=== PATIENT | female | born 1975 | race Caucasian/White ===

== ENCOUNTER 2021-10-26 13:40 | Inpatient (IN) | payer SELFPAY ==
--- NOTE | ~2021-10-26 | CT_ITS ---
EXAMINATION: CT ABDOMEN AND PELVIS WITHOUT CONTRAST CLINICAL INFORMATION: Right-sided abdominal pain. COMPARISON: None. TECHNIQUE: Multidetector volumetric imaging was performed from the superior aspect of the liver through the pubic symphysis. Sagittal and coronal reformatted images were obtained on the technologist's workstation. This CT examination was performed using dose optimization techniques as appropriate, variously including the following: *Automated exposure control *Adjustment of mA and/or kV according to patient size (this includes techniques or standardized protocols for targeted exams where dose is matched to indication/reason for exam; i.e. extremities or head) *Use of iterative reconstruction technique DLP: 557 mGy-cm FINDINGS: LUNG BASES: Calcified granuloma in the left lower lobe. No focal consolidation or pleural effusion. LIVER, GALLBLADDER, AND BILIARY TREE: The liver measures 21 cm craniocaudally. There is mild hepatic steatosis. No discrete focal liver lesions are identified, though evaluation is limited in the absence of intravenous contrast. Normal gallbladder. No biliary ductal dilatation. PANCREAS: Very subtle peripancreatic fat stranding is likely related with volume averaging. The main pancreatic duct is nondilated. SPLEEN: The spleen measures 12.7 cm craniocaudally. No discrete lesions. ADRENAL GLANDS: No adrenal masses. 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 There are hyperattenuating renal pyramids with innumerable nonobstructive bilateral renal calculi. No hydronephrosis. Nonspecific ill-defined hypoattenuation in the upper pole of the right kidney. BLADDER: Unremarkable. GASTROINTESTINAL TRACT: Postsurgical changes from what appears to be a prior gastric bypass. The pancreaticobiliary limb is mildly prominent (3:27). The Gabriel-en-Y limb is nondilated. No pericolonic inflammatory changes. The appendix is not definitely visualized, however there are no regional inflammatory changes in the right lower quadrant or cecal base to suspect acute appendicitis. ABDOMINAL WALL: No significant hernia is appreciated. LYMPH NODES: Haziness of the mesentery with nonspecific prominent but subcentimeter mesenteric lymph nodes. VASCULAR: Unremarkable. PELVIC VISCERA: Nonspecific hypodensity in the cervix (7:45). Dominant follicle in the right ovary. OSSEOUS STRUCTURES: No acute or aggressive appearing osseous abnormalities. CT/CT abdomen pelvis wo con IMPRESSION: 1. Postsurgical changes from a prior gastric bypass with unusual circular disposition of the anastomosis in the stomach and mild prominence of the pancreaticobiliary limb. If clinically indicated, further imaging after administration of oral contrast is recommended to evaluate for complications. 2. Indeterminate mesenteric haziness with a few prominent mesenteric lymph nodes. This is of uncertain significance but could be associated with mesenteric adenitis, panniculitis or gastroenteritis in the appropriate clinical context. 3. Hepatomegaly and hepatic steatosis. 4. Nonspecific hypoattenuation in the upper pole the right kidney. Correlation with an elective nonemergent abdominal MR is recommended. 5. Medullary nephrocalcinosis, possibly sponge kidney, and multiple nonobstructive bilateral renal calculi. 6. Incompletely characterized hypodensity in the cervix. Correlation with a nonemergent pelvic ultrasound is recommended.
--- NOTE | ~2021-10-26 | CT_ITS ---
EXAMINATION: CT ABDOMEN AND PELVIS WITHOUT CONTRAST CLINICAL INFORMATION: Abdominal pain. History of gastric bypass. COMPARISON: Earlier same date TECHNIQUE: Multidetector volumetric imaging was performed from the superior aspect of the liver through the pubic symphysis. Sagittal and coronal reformatted images were obtained on the technologist's workstation. This CT examination was performed using dose optimization techniques as appropriate, variously including the following: *Automated exposure control *Adjustment of mA and/or kV according to patient size (this includes techniques or standardized protocols for targeted exams where dose is matched to indication/reason for exam; i.e. extremities or head) *Use of iterative reconstruction technique DLP: 594 mGy-cm FINDINGS: LUNG BASES: The visualized lung bases are unremarkable. LIVER, GALLBLADDER, AND BILIARY TREE: The liver is normal in size, shape, and attenuation. No focal hepatic lesion or biliary ductal dilatation is present. Gallbladder unremarkable. PANCREAS: Unremarkable. SPLEEN: Unremarkable. ADRENAL GLANDS: Unremarkable. KIDNEYS AND URETERS: Again seen is hyperdensity of the medullary pyramids bilaterally compatible with medullary nephrocalcinosis. There are scattered bilateral punctate nonobstructive intrarenal calculi, too numerous to count within both kidneys. No hydronephrosis. There a few hypodensities within the midpole right kidney favored representing simple cysts, although these are technically indeterminate on this unenhanced exam. There is faint haziness of the perinephric fat about the superior pole right kidney, which appears to relate to motion artifact. Ureters are normal in course and caliber. BLADDER: Unremarkable. GASTROINTESTINAL TRACT: Gabriel-en-Y gastric bypass. Small fluid present within the excluded stomach similar to prior. Small amount contrast present within the duodenum. Enteroenteric anastomosis intact. No bowel obstruction or inflammation. ABDOMINAL WALL: No significant hernia is appreciated. LYMPH NODES: Normal. VASCULAR: Unremarkable. PELVIC VISCERA: Hypodensities within the cervix statistically related to nabothian cysts/dilated cervical glands, within normal limits on the basis of unenhanced CT. Physiologic follicle within the right ovary. No adnexal abnormalities. OSSEOUS STRUCTURES: No acute or suspicious osseous abnormalities. CT/CT abdomen pelvis wo con IMPRESSION: * Gabriel-en-Y gastric bypass. Excluded stomach is free of enteric contrast. There is trace oral contrast within the distal transverse duodenum and what portion of the duodenum which may represent retrograde reflux from the enteroenteric anastomosis. No evidence of anastomotic dehiscence. * Bilateral medullary nephrocalcinosis and punctate nonobstructive calculi as described. No ureteral calculi or hydronephrosis. Diagnostic considerations for medullary calcinosis include hyperparathyroidism, distal renal tubular acidosis and medullary sponge kidney. * Nonspecific hypodensity in the upper pole right kidney favored to relate to a benign cyst cyst (as seen on the ultrasound performed earlier same date), * Perinephric stranding versus artifact bowel the superior pole right kidney. Pyelonephritis could be considered. Please correlate with urinalysis.
--- NOTE | ~2021-10-26 | US_ITS ---
EXAMINATION: US ABDOMEN LIMITED CLINICAL INFORMATION: Right upper quadrant abdominal pain for about 3 days. COMPARISON: None. TECHNIQUE: Real-time imaging of the right upper quadrant abdominal viscera. FINDINGS: PANCREAS: The visualized portions of the pancreatic head are within normal limits. However, a large majority of the pancreas is obscured by overlying bowel gas. LIVER: Mild hepatomegaly measuring 18 cm in maximum length with increased parenchymal echogenicity. This limits evaluation of focal abnormalities, however accounting for these limitations, no discrete lesions are identified. There is no intrahepatic biliary ductal dilatation. GALLBLADDER: The gallbladder is contracted limiting its evaluation. No definite shadowing stones are identified. COMMON BILE DUCT: Not visualized due to shadowing from overlying bowel gas. RIGHT KIDNEY: There is a 1.2 cm simple cyst in the upper pole. No hydronephrosis or renal calculi. The kidney measures 12.8 cm in maximum dimension. FREE FLUID: None. US/US abdomen limited IMPRESSION: Limited examination due to patient body habitus and shadowing from overlying bowel gas. Unfortunately, the gallbladder is contracted limiting its assessment. If there is high clinical concerns for acute cholecystitis, correlation with an interval ultrasound or a CT abdomen could be obtained. Increased parenchymal echogenicity of the liver suggesting hepatic steatosis. The pancreas and the common bile duct are not well visualized.
[2021-10-26 13:49] VITALS: BP 130/84; PULSE 79; RESP 18; TEMP 36; O2SAT 100; BMI 29.4
[2021-10-26 14:33] LABS: Basophils Percent Auto 0.3 % (0-2); Eosinophils Absolute Auto 0.1 X10*3/uL (0.0-0.4); Eosinophils Percent Auto 0.9 % (0-4); Hematocrit 29.3 % (37.0-47.0); Hemoglobin 8.7 g/dl (12.0-16.0); Imm Gran Abs Auto 0.05 X10*3/uL (0.00-0.03); Imm Gran Pct Auto 0.8 % (0.0-0.4); Lymphocytes Absolute Auto 1.7 X10*3/uL (1.2-4.9); Lymphocytes Percent Auto 25.5 % (20-40); MANUAL DIFF FLAG NO; Mean Corpuscular HGB Conc 29.7 g/dl (31.0-35.0); Mean Corpuscular Volume 70.8 fL (80.0-98.0); Mean Platelet Volume 10.2 fL (9.4-12.3); Monocytes Absolute Auto 0.8 X10*3/uL (0.1-1.2); Neutrophils Absolute Auto 3.9 x10*3/uL (2.0-8.3); Neutrophils Percent Auto 60.5 % (45-73); Platelet Count 271 X10*3/uL (160-400); Red Blood Count 4.14 X10*6/uL (4.20-5.50); Red Cell Distribution Width 17.7 % (11.0-16.0); White Blood Count 6.5 X10*3/uL (4.8-10.8)
[2021-10-26 14:46] LABS: Anion Gap 10 (12-20); Blood Urea Nitrogen 9 mg/dL (9-16); Calcium 9.6 mg/dL (8.4-10.2); Carbon Dioxide 27 mmol/L (22-29); Chloride 105 mmol/L (96-108); Creatinine Clr Calc Pharmacy 110.2; Estimated Glomerular Filt Rate > 60; Glucose Random 102 mg/dL (60-115); Sodium 138 mmol/L (135-145)
[2021-10-26 15:19] LABS: Appearance Urine CLOUDY; Color Urine YELLOW; Glucose Urine UA NEG (NEG); Leukocyte Esterase Urine 2+ (NEG); Nitrite Urine POS (NEG); PH 6.5 (5.0-8.0); UACC Culture Trigger YES; Urine Blood 3+ (NEG); Urine Ketones NEG (NEG); Urine Protein TRACE MG/DL (NEG-TRACE)
[2021-10-26 15:27] LABS: Bacteria Urine 3+ /LPF; RBC Urine 50-75 /HPF (0); Squamous Epithelial Cell Urine TRACE /LPF; WBC Urine 30-49 /HPF (0-4)
[2021-10-26 15:58] VITALS: BP 126/84; PULSE 74; RESP 16; TEMP 36.4; O2SAT 100
--- NOTE | 2021-10-26 16:28 | ED_ITS ---
HPI - Abdominal Pain General Chief Complaint: Abdominal Pain Stated Complaint: R side abd pain Time Seen by Provider: 10/26/21 15:53 Source: patient and family Mode of arrival: ambulatory Limitations: language barrier (Ghanaian and Kyrgyz speaking) History of Present Illness HPI narrative: 46-year-old female who speaks Ghanaian and Kyrgyz presenting to the ED with significant other at bedside who reports she has a past medical history of anemia despite taking her 325 mg of ferrous sulfate, gallstones and kidney stones presenting to the ED with complaints of 3 days of right upper quadrant abdominal pain with associated nausea/acid reflux. She reports associated dysuria with urinary urgency/frequency. Denies any fevers, chills, dizziness, headache, neck pain/stiffness, trouble swallowing or breathing, chest pain or shortness of breath, dyspnea on exertion, orthopnea, palpitations, paresthesias, vomiting, radiation of the abdominal pain, back pain, hematuria, abnormal vaginal discharge, black or bloody stools, recent travel or sick contacts or any other symptoms complaints or concerns at this time. MD elicited complaint: abdominal pain Pertinent past history: kidney stones (And gallstones) Onset (ago): day(s) (3) Pain Consistency: constant Location: RUQ Severity: moderate Quality: aching and sharp Radiation: none Migration to: no migration Exacerbating factors: nothing Relieving factors: nothing Associated symptoms: nausea Related Data Date of Last Menstrual Period: 10/26/21 Allergies Allergy/AdvReac Type Severity Reaction Status Date / Time No Known Allergies Allergy Verified 10/26/21 15:54 Review of Systems Review of Systems Constitutional : No Weight loss, No Fever, No Chills, No Night Sweats, No Fatigue, No Malaise ENT/Mouth : No Hearing loss, No Ear Pain, No Nasal Congestion, No Sinus Pain, No Hoarseness, No sore throat, No Rhinorrhea, No Swallowing Difficulty Eyes: No Eye Pain, No Swelling, No Redness, No Foreign Body, No Discharge, No Vision Changes Cardiovascular : No Chest Pain, No SOB, No Dyspnea on Exertion, No Orthopnea, No Edema, No Palpitations Respiratory : No Cough, No Sputum, No Wheezing, No Smoke Exposure, No Dyspnea Gastrointestinal : + Nausea/RUQ ABD PAIN, No Vomiting, No Diarrhea, No Constipation, No Hematochezia, No Melena Genitourinary : no irregular bleeding, No Dysuria, No Urinary Frequency, No Hematuria, No Urinary Incontinence, No Urgency, No Flank Pain, No Urinary Flow Changes, No Hesitancy Musculoskeletal : No joint pain, No Myalgias, No Joint Swelling Skin : No Skin Lesions, No rash Neuro : No Weakness, No Numbness, No Paresthesias, No Loss of Consciousness, No Dizziness, No Headache Psych : No Anxiety/Panic, No Depression, No SI/HI/AH/VH, No Social Issues, Heme/Lymph: No Bruising, No Bleeding,No Lymphadenopathy Endocrine : No Polyuria, No Polydipsia, No Temperature Intolerance Yes all other systems are reviewed and are negative [facility] Past Medical History Attestation statement: The following information was validated with the patient. Medical History Hypothyroid Date of Last Menstrual Period: 10/26/21 Social History Social History Advance Directives: No Advance Directives Information Provided: No Physical Exam ED Vital Signs: Vital Signs - 24 hr 10/26/21 13:49 10/26/21 15:58 Temperature 96.8 F 97.5 F Pulse Rate 79 74 Respiratory Rate 18 16 Blood Pressure 130/84 126/84 Pulse Oximetry 100 100 BMI result Body Mass Index 29.4 Vital signs have been reviewed and all within normal limits Appearance: Alert. Oriented X3. No acute distress. Head: Normal external exam. Normocephalic. Eyes: PERRLA. EOMI. Conjunctiva and sclera normal. Eyelids normal. ENT: Pharynx normal. Uvula midline. Moist mucous membranes. No trismus noted. No drooling noted. No muffled voice noted. Neck: Normal inspection. Neck supple. FROM. No adenopathy. No meningeal signs. CVS: Normal heart rate and rhythm. Heart sound normal. No murmurs noted. Pulses normal throughout. Respiratory: No respiratory distress. Painless inspiration. Breath sounds normal. No wheezes/rales/rhonchi noted. Chest nontender. No accessory muscle usage noted or decreased air movement noted. Abdomen: Soft and moderate tenderness palpation to the right upper quadrant/epigastric area with guarding with a positive Durán sign. Nondi stended. No rigidity. Bowel sounds normal in all 4 quadrants. No distention noted. No organomegaly noted. No visible injury noted. No rebound tenderness. Negative Rovsing sign. Negative obturator's sign. Negative psoas sign. Back: No CVA tenderness. Full range of motion noted. Skin: Skin warm and dry. Normal skin color. Normal skin turgor. No rashes/lesions/lacerations noted. Extremities: Extremities exhibit normal range of motion. Extremities nontender. Neuro: Oriented X 3. No motor deficit. No sensory deficit. Reflexes normal. Normal steady gait. CN's II-XII intact bilaterally? Vascular: +2 radial pulses bilaterally. No cyanosis noted to upper extremities. Normal capillary refill noted Course Course Course Narrative: 16:20pm - 46-year-old female who speaks Ghanaian and Kyrgyz presenting to the ED with significant other at bedside who reports she has a past medical history of anemia despite taking her 325 mg of ferrous sulfate, gallstones and kidney stones presenting to the ED with complaints of 3 days of right upper quadrant abdominal pain with associated nausea/acid reflux. She reports associated dysuria with urinary urgency/frequency. Labs were obtained while the patient was in the waiting room and I reviewed labs at this time which revealed an H&H of 8.7/29.3 there is no comparison at this time this may be the patient's baseline due to patient reports anemia she denies any shortness of breath/dizziness or chest pain or any other related complaints. She reports she is also on her menstrual period. Anion gap 10. Otherwise all other labs are within normal limits. UA revealed positive nitrates with leukocytes and red blood cells. Therefore at this time will provide 60 mg of IM Toradol add LFTs/magnesium/lipase/ test Karen ultrasound complete and re-evaluate. Reevaluation(s) Reevaluation #1: - abdominal ultrasound was limited due to body habitus and shadowing from overlying bowel gas and the gallbladder was contracted therefore it was a limited assessment. Therefore CT scan abdomen pelvis without IV contrast was obtained revealed Postsurgical changes from a prior gastric bypass with unusual circular disposition of the anastomosis in the stomach and mild prominence of the pancreaticobiliary limb. If clinically indicated, further imaging after administration of oral contrast is recommended to evaluate for complications. - Therefore I discussed this with the patient as she did not tell me that she had a gastric bypass after I asked her if she had any abdominal surgeries and she reported that she forgot to mention that she had a gastric bypass due to it was over 10 years ago it has never given her any problems it was done in [place]. - CT scan abdomen pelvis without IV contrast also revealed other processes such as hepatomegaly and hepatic steatosis. Possible mesenteric adenitis versus valladares colitis or gastroenteritis. Along with possible sponge kidney and nonobstructive bilateral renal calculi. Otherwise no other acute processes. - I spoke to the general surgeon Dr. Raymond and she recommended obtaining a CT scan abdomen pelvis with p.o. contrast therefore ordered at this time. - Will give patient 4 mg of morphine and 4 mg of Zofran for her pain and re- evaluate. Patient understands agrees with this plan. Time: 18:53 Reevaluation #2: - repeat CT scan with p.o. contrast revealed that the gastric bypass was normal no leakage and no blockage. 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 Also benign cysts on the kidneys. And it appears that patient is in pyelonephritis otherwise no other acute processes. - therefore at this time will admit for pyelonephritis and started on IV antibiotics. Dr. Sy to admit at this time. Patient understands agrees with this plan as she does not want to go home due to she feels like her pain is not controlled. Time: 21:50 MDM - Abdominal Pain Medical Records Attestation: I reviewed the patient's medical records. Lab Data Attestation: I reviewed the patient's lab results. Result diagrams: 10/26/21 14:27 10/26/21 14:27 Labs: Lab Results 10/26/21 10/26/21 10/26/21 Range/Units 14:27 14:27 15:15 WBC 6.5 (4.8-10.8) X10*3/uL RBC 4.14 L (4.20-5.50) X10*6/uL Hgb 8.7 L (12.0-16.0) g/dl Hct 29.3 L (37.0-47.0) % MCV 70.8 L (80.0-98.0) fL MCH 21.0 L (27.0-33.0) pg MCHC 29.7 L (31.0-35.0) g/dl RDW 17.7 H (11.0-16.0) % Plt Count 271 (160-400) X10*3/uL MPV 10.2 (9.4-12.3) fL Immature Gran % (Auto) 0.8 H (0.0-0.4) % Neut % (Auto) 60.5 (45-73) % Lymph % (Auto) 25.5 (20-40) % [place] % (Auto) 12.0 H (2-11) % Eos % (Auto) 0.9 (0-4) % Baso % (Auto) 0.3 (0-2) % Lymph # (Auto) 1.7 (1.2-4.9) X10*3/uL [place] # (Auto) 0.8 (0.1-1.2) X10*3/uL Eos # (Auto) 0.1 (0.0-0.4) X10*3/uL Baso # (Auto) 0.0 (0.0-0.2) X10*3/uL Abs Immat Gran (auto) 0.05 H (0.00-0.03) X10*3/uL Absolute Neuts (auto) 3.9 (2.0-8.3) x10*3/uL Absolute Nucleated RBC 0.000 (0.0-0.012) X10*3/uL Nucleated RBC % (auto) 0.0 (0.0-0.2) /100WBC Sodium 138 (135-145) mmol/L Potassium 4.0 (3.3-5.1) mmol/L Chloride 105 (96-108) mmol/L Carbon Dioxide 27 (22-29) mmol/L Anion Gap 10 L (12-20) BUN 9 (9-16) mg/dL Creatinine 0.66 (0.5-1.4) mg/dL Estim Creat Clear Calc 110.2 Estimated GFR > 60 Random Glucose 102 (60-115) mg/dL Calcium 9.6 (8.4-10.2) mg/dL Magnesium 2.0 (1.6-2.6) mg/dL Total Bilirubin 0.4 (0.0-1.0) mg/dL Direct Bilirubin 0.2 (0.0-0.5) mg/dL AST 16 (5-31) U/L ALT 25 (0-31) U/L Alkaline Phosphatase 65 (39-117) U/L Total Protein 7.2 (6.5-8.0) g/dL Albumin 3.9 (3.5-5.0) g/dL Lipase 23 (8-78) U/L Beta HCG, Quant < 2 mIU/mL Urine Color YELLOW Urine Appearance CLOUDY Urine pH 6.5 (5.0-8.0) Ur Specific [place] 1.020 (1.005-1.025) Urine Protein TRACE (NEG-TRACE) MG/DL Urine Glucose (UA) NEG (NEG) MG/DL Urine Ketones NEG (NEG) MG/DL Urine Blood 3+ H (NEG) Urine Nitrite POS H (NEG) Ur Leukocyte Esterase 2+ H (NEG) Urine RBC 50-75 H (0) /HPF Urine WBC 30-49 H (0-4) /HPF Ur Squamous Epith Cells TRACE /LPF Urine Bacteria 3+ /LPF Urine Test 10/26/21 Range/Units 15:15 WBC (4.8-10.8) X10*3/uL RBC (4.20-5.50) X10*6/uL Hgb (12.0-16.0) g/dl Hct (37.0-47.0) % MCV (80.0-98.0) fL MCH (27.0-33.0) pg MCHC (31.0-35.0) g/dl RDW (11.0-16.0) % Plt Count (160-400) X10*3/uL MPV (9.4-12.3) fL Immature Gran % (Auto) (0.0-0.4) % Neut % (Auto) (45-73) % Lymph % (Auto) (20-40) % [place] % (Auto) (2-11) % Eos % (Auto) (0-4) % Baso % (Auto) (0-2) % Lymph # (Auto) (1.2-4.9) X10*3/uL [place] # (Auto) (0.1-1.2) X10*3/uL Eos # (Auto) (0.0-0.4) X10*3/uL Baso # (Auto) (0.0-0.2) X10*3/uL Abs Immat Gran (auto) (0.00-0.03) X10*3/uL Absolute Neuts (auto) (2.0-8.3) x10*3/uL Absolute Nucleated RBC (0.0-0.012) X10*3/uL Nucleated RBC % (auto) (0.0-0.2) /100WBC Sodium (135-145) mmol/L Potassium (3.3-5.1) mmol/L Chloride (96-108) mmol/L Carbon Dioxide (22-29) mmol/L Anion Gap (12-20) BUN (9-16) mg/dL Creatinine (0.5-1.4) mg/dL Estim Creat Clear Calc Estimated GFR Random Glucose (60-115) mg/dL Calcium (8.4-10.2) mg/dL Magnesium (1.6-2.6) mg/dL Total Bilirubin (0.0-1.0) mg/dL Direct Bilirubin (0.0-0.5) mg/dL AST (5-31) U/L ALT (0-31) U/L Alkaline Phosphatase (39-117) U/L Total Protein (6.5-8.0) g/dL Albumin (3.5-5.0) g/dL Lipase (8-78) U/L Beta HCG, Quant mIU/mL Urine Color Urine Appearance Urine pH (5.0-8.0) Ur Specific [place] (1.005-1.025) Urine Protein (NEG-TRACE) MG/DL Urine Glucose (UA) (NEG) MG/DL Urine Ketones (NEG) MG/DL Urine Blood (NEG) Urine Nitrite (NEG) Ur Leukocyte Esterase (NEG) Urine RBC (0) /HPF Urine WBC (0-4) /HPF Ur Squamous Epith Cells /LPF Urine Bacteria /LPF Urine Test Cancelled Imaging Data Abdominal ultrasound: Attestation: I personally reviewed and interpreted this imaging study as follows: Radiologist's impression: FINDINGS: PANCREAS: The visualized portions of the pancreatic head are within normal limits. However, a large majority of the pancreas is obscured by overlying bowel gas. LIVER: Mild hepatomegaly measuring 18 cm in maximum length with increased parenchymal echogenicity. This limits evaluation of focal abnormalities, however accounting for these limitations, no discrete lesions are identified. There is no intrahepatic biliary ductal dilatation. GALLBLADDER: The gallbladder is contracted limiting its evaluation. No definite shadowing stones are identified. COMMON BILE DUCT: Not visualized due to shadowing from overlying bowel gas. RIGHT KIDNEY: There is a 1.2 cm simple cyst in the upper pole. No hydronephrosis or renal calculi. The kidney measures 12.8 cm in maximum dimension. FREE FLUID: None. US/US abdomen limited IMPRESSION: Limited examination due to patient body habitus and shadowing from overlying bowel gas. ? Unfortunately, the gallbladder is contracted limiting its assessment. If there is high clinical concerns for acute cholecystitis, correlation with an interval ultrasound or a CT abdomen could be obtained. ? Increased parenchymal echogenicity of the liver suggesting hepatic steatosis. ? The pancreas and the common bile duct are not well visualized. CT scan abdomen pelvis without IV/PO contrast: Attestation: I personally reviewed and interpreted this imaging study as follows: Radiologist's impression: FINDINGS: LUNG BASES: Calcified granuloma in the left lower lobe. No focal consolidation or pleural effusion.? LIVER, GALLBLADDER, AND BILIARY TREE: The liver measures 21 cm craniocaudally. There is mild hepatic steatosis. No discrete focal liver lesions are identified, though evaluation is limited in the absence of intravenous contrast. Normal gallbladder. No biliary ductal dilatation. PANCREAS: Very subtle peripancreatic fat stranding is likely related with volume averaging. The main pancreatic duct is nondilated.? SPLEEN: The spleen measures 12.7 cm craniocaudally. No discrete lesions.? ADRENAL GLANDS: No adrenal masses.? 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 There are hyperattenuating renal pyramids with innumerable nonobstructive bilateral renal calculi. No hydronephrosis. Nonspecific ill-defined hypoattenuation in the upper pole of the right kidney.? BLADDER: Unremarkable.? GASTROINTESTINAL TRACT: Postsurgical changes from what appears to be a prior gastric bypass. The pancreaticobiliary limb is mildly prominent (3:27). The Gabriel-en-Y limb is nondilated. No pericolonic inflammatory changes. The appendix is not definitely visualized, however there are no regional inflammatory changes in the right lower quadrant or cecal base to suspect acute appendicitis.? ABDOMINAL WALL: No significant hernia is appreciated.? LYMPH NODES: Haziness of the mesentery with nonspecific prominent but subcentimeter mesenteric lymph nodes. VASCULAR: Unremarkable. PELVIC VISCERA: Nonspecific hypodensity in the cervix (7:45). Dominant follicle in the right ovary.? OSSEOUS STRUCTURES: No acute or aggressive appearing osseous abnormalities.? CT/CT abdomen pelvis wo con IMPRESSION: 1.? Postsurgical changes from a prior gastric bypass with unusual circular disposition of the anastomosis in the stomach and mild prominence of the pancreaticobiliary limb. If clinically indicated, further imaging after administration of oral contrast is recommended to evaluate for complications. ? 2.? Indeterminate mesenteric haziness with a few prominent mesenteric lymph nodes. This is of uncertain significance but could be associated with mesenteric adenitis, panniculitis or gastroenteritis in the appropriate clinical context. ? 3.? Hepatomegaly and hepatic steatosis. ? 4.? Nonspecific hypoattenuation in the upper pole the right kidney. Correlation with an elective nonemergent abdominal MR is recommended. ? 5.? Medullary nephrocalcinosis, possibly sponge kidney, and multiple nonobstructive bilateral renal calculi. ? 6.? Incompletely characterized hypodensity in the cervix. Correlation with a nonemergent pelvic ultrasound is recommended. CT scan abdomen pelvis with p.o. contrast: Attestation: I personally reviewed and interpreted this imaging study as follows: Radiologist's impression: FINDINGS: LUNG BASES: The visualized lung bases are unremarkable.? LIVER, GALLBLADDER, AND BILIARY TREE: The liver is normal in size, shape, and attenuation. No focal hepatic lesion or biliary ductal dilatation is present. Gallbladder unremarkable.? PANCREAS: Unremarkable.? SPLEEN: Unremarkable.? ADRENAL GLANDS: Unremarkable.? KIDNEYS AND URETERS: Again seen is hyperdensity of the medullary pyramids bilaterally compatible with medullary nephrocalcinosis. There are scattered bilateral punctate nonobstructive intrarenal calculi, too numerous to count within both kidneys. No hydronephrosis. There a few hypodensities within the midpole right kidney favored representing simple cysts, although these are technically indeterminate on this unenhanced exam. There is faint haziness of the perinephric fat about the superior pole right kidney, which appears to relate to motion artifact. Ureters are normal in course and caliber. BLADDER: Unremarkable.? GASTROINTESTINAL TRACT: Gabriel-en-Y gastric bypass. Small fluid present within the excluded stomach similar to prior. Small amount contrast present within the duodenum. Enteroenteric anastomosis intact. No bowel obstruction or inflammation. ABDOMINAL WALL: No significant hernia is appreciated.? LYMPH NODES: Normal. VASCULAR: Unremarkable. PELVIC VISCERA: Hypodensities within the cervix statistically related to nabothian cysts/dilated cervical glands, within normal limits on the basis of unenhanced CT. Physiologic follicle within the right ovary. No adnexal abnormalities.? OSSEOUS STRUCTURES: No acute or suspicious osseous abnormalities.? CT/CT abdomen pelvis wo con IMPRESSION: *? Gabriel-en-Y gastric bypass. Excluded stomach is free of enteric contrast. There is trace oral contrast within the distal transverse duodenum and what portion of the duodenum which may represent retrograde reflux from the enteroenteric anastomosis. No evidence of anastomotic dehiscence. *? Bilateral medullary nephrocalcinosis and punctate nonobstructive calculi as described. No ureteral calculi or hydronephrosis. Diagnostic considerations for medullary calcinosis include hyperparathyroidism, distal renal tubular acidosis and medullary sponge kidney. *? Nonspecific hypodensity in the upper pole right kidney favored to relate to a benign cyst cyst (as seen on the ultrasound performed earlier same date), *? Perinephric stranding versus artifact bowel the superior pole right kidney. Pyelonephritis could be considered. Please correlate with urinalysis. ? ? Critical Care Time Critical Care Time Critical Care Time: Yes Total Critical Care Time: 60 Attestation: I personally attest to this time spent taking care of the patient Discharge Plan Discharge Clinical Impression: Pyelonephritis, Abdominal pain, RUQ, Nausea, Acute abdominal pain in right flank Patient Disposition: Admitted As Inpatient
[2021-10-26 16:47] LABS: Alanine Aminotransferase 25 U/L (0-31); Albumin Level 3.9 g/dL (3.5-5.0); Alkaline Phosphatase 65 U/L (39-117); Aspartate Amino Transferase 16 U/L (5-31); Bilirubin Direct 0.2 mg/dL (0.0-0.5); Bilirubin Total 0.4 mg/dL (0.0-1.0); Lipase 23 U/L (8-78); Total Protein 7.2 g/dL (6.5-8.0)
[2021-10-26] MEDS: Ketorolac Tromethamine 60 MG/2 ML VIAL IM (17:13)
[2021-10-26 17:17] LABS: HCG Quantitative < 2 mIU/mL
[2021-10-26] MEDS: Morphine Sulfate 4 MG/ML CARTRIDGE IVPUSH (19:22)
[2021-10-26] MEDS: ondansetron HCL 4 MG/2 ML VIAL IVPUSH (19:22)
--- NOTE | 2021-10-26 19:41 | PC.NURSE ---
Took report from Michelle to assume care of PT.
[2021-10-26] MEDS: Diatrizoate Meglumine, Sodium 30 ML SOLUTION PO (20:52)
[2021-10-26] MEDS: 0.9 % Sodium Chloride 1,000 ML 999 ML IVCONT (22:17)
[2021-10-26] MEDS: levoFLOXacin/D5W 750 MG/150 ML PIGGYBACK 100 MG IV (22:19)
[2021-10-26 22:55] LABS: Lactic Acid 0.8 mmol/L (0.5-2.0)
[2021-10-26 23:04] VITALS: BP 103/70; PULSE 67; RESP 16; O2SAT 97
[2021-10-26 23:09] LABS: COVID-19 Test Negative (Negative)
--- NOTE | 2021-10-26 23:57 | PM.IMHP ---
History of Present Illness Date of Service: 10/26/21 Chief Complaint: RUQ pain This is a 46-year-old female with past medical history of hypothyroidism and Gabriel-en-Y gastric bypass presents to the hospital with complaints of right upper and lower quadrant abdominal pain. Patient reports that her symptoms started about 4 days ago, 04/14, radiating across the abdomen, with some urinary frequency, no urgency or dysuria. She has some nausea with no vomiting, patient otherwise denies any diarrhea or constipation, no chest pain, no shortness of breath, no cough, no headache or change in vision, no lower extremity edema. On arrival to the ED patient hemodynamically stable with no significant abnormal vitals Labs are significant for WBC count of 4.9, hemoglobin of 8.7, hematocrit 29.3, MCV of 70.8, urine positive for nitrites, leukocyte Estrace, WBC Initial Abdominal pelvic CT without contrast showed postsurgical changes from a prior gastric bypass with unusual circular disposition of the anastomosis in the stomach and mild prominence of the pancreatobiliary limb. A repeat abdominal CT with contrast was done which showed evidence of pyelonephritis and revealed normal gastric bypass no leakage and no blockage. Pre also shows medullary sponge kidney. She will be admitted for further management Review of Systems Review of Systems: Yes all other systems are reviewed and are negative [facility] Medical History (Updated 10/27/21 @ 07:35 by Yanci Sy MD) Hypothyroid Family History (Updated 10/27/21 @ 07:33 by Yanci Sy MD) Other No family history of coronary artery disease Surgical History (Updated 10/27/21 @ 07:33 by Yanci Sy MD) History of Gabriel-en-Y gastric bypass Social History (Updated 10/27/21 @ 07:34 by Yanci Sy MD) Alcohol intake: never Patient Tobacco Use Status: Never used Tobacco Use of substances other than those prescribed or required for medical reasons: No Advance Directives: No Advance Directives Information Provided: No Meds Allergies Allergy/AdvReac Type Severity Reaction Status Date / Time No Known Allergies Allergy Verified 10/26/21 15:54 Active Medications: Current Medications Pharmacy Consult (Consult Rx Perform Med Rec) 1 each MISCELLANE ONCE PRN PRN Reason: Consult order Physical Exam Vital Signs and Narrative: Vital Signs: Last Vital Signs Temp 97.5 F 10/26/21 15:58 Pulse 67 10/26/21 23:04 Resp 16 10/26/21 23:04 BP 103/70 10/26/21 23:04 Pulse Ox 97 10/26/21 23:04 BMI result Body Mass Index 29.4 Const: General: cooperative and no acute distress Orientation/consciousness: patient oriented x3 Eyes: General: appearance normal, both eyes and all related structures Pupils: Equal, round and reactive pupils present Resp: Effort & Inspection: normal respiratory effort Auscultation: clear to auscultation bilaterally Cardio: Rate: regular rate Rhythm: regular rhythm GI: Other: Right upper quadrant abdominal tenderness, no rebound or guarding Palpation (GI): Soft to palpation Auscultation: normal bowel sounds : Other: CVA tenderness present on the right Skin: General skin exam: no rashes or lesions noted Neuro: General: patient oriented x3 Cranial nerves: Yes Equal, round and reactive pupils present Cognition (Neuro): normal cognition Extrem: General: Yes normal to inspection and Yes no pedal edema Results Labs CBC and Chem 7: 10/27/21 05:46 10/27/21 05:46 Labs: Laboratory Results - last 24 hr 10/26/21 10/26/21 10/26/21 14:27 14:27 15:15 MCV 70.8 L MCH 21.0 L MCHC 29.7 L RDW 17.7 H Plt Count 271 MPV 10.2 Immature Gran % (Auto) 0.8 H Neut % (Auto) 60.5 Lymph % (Auto) 25.5 [place] % (Auto) 12.0 H Eos % (Auto) 0.9 Baso % (Auto) 0.3 Lymph # (Auto) 1.7 [place] # (Auto) 0.8 Eos # (Auto) 0.1 Baso # (Auto) 0.0 Abs Immat Gran (auto) 0.05 H Absolute Neuts (auto) 3.9 Absolute Nucleated RBC 0.000 Nucleated RBC % (auto) 0.0 Anion Gap 10 L Estim Creat Clear Calc 110.2 Estimated GFR > 60 Random Glucose 102 Lactic Acid Calcium 9.6 Magnesium 2.0 Total Bilirubin 0.4 Direct Bilirubin 0.2 AST 16 ALT 25 Alkaline Phosphatase 65 Total Protein 7.2 Albumin 3.9 Lipase 23 Beta HCG, Quant < 2 Urine Color YELLOW Urine Appearance CLOUDY Urine pH 6.5 Ur Specific [place] 1.020 Urine Protein TRACE Urine Glucose (UA) NEG Urine Ketones NEG Urine Blood 3+ H Urine Nitrite POS H Ur Leukocyte Esterase 2+ H Urine RBC 50-75 H Urine WBC 30-49 H Ur Squamous Epith Cells TRACE Urine Bacteria 3+ Urine Test COVID-19 (JADA) COVID-19 Clin Com 10/26/21 10/26/21 10/26/21 15:15 22:34 22:35 MCV MCH MCHC RDW Plt Count MPV Immature Gran % (Auto) Neut % (Auto) Lymph % (Auto) [place] % (Auto) Eos % (Auto) Baso % (Auto) Lymph # (Auto) [place] # (Auto) Eos # (Auto) Baso # (Auto) Abs Immat Gran (auto) Absolute Neuts (auto) Absolute Nucleated RBC Nucleated RBC % (auto) Anion Gap Estim Creat Clear Calc Estimated GFR Random Glucose Lactic Acid 0.8 Calcium Magnesium Total Bilirubin Direct Bilirubin AST ALT Alkaline Phosphatase Total Protein Albumin Lipase Beta HCG, Quant Urine Color Urine Appearance Urine pH Ur Specific [place] Urine Protein Urine Glucose (UA) Urine Ketones Urine Blood Urine Nitrite Ur Leukocyte Esterase Urine RBC Urine WBC Ur Squamous Epith Cells Urine Bacteria Urine Test Cancelled COVID-19 (JADA) Negative COVID-19 Clin Com See Note Imaging Radiologist's Impressions: Impressions Abdomen Ultrasound 10/26/21 16:48 IMPRESSION: Limited examination due to patient body habitus and shadowing from overlying bowel gas. Unfortunately, the gallbladder is contracted limiting its assessment. If there is high clinical concerns for acute cholecystitis, correlation with an interval ultrasound or a CT abdomen could be obtained. Increased parenchymal echogenicity of the liver suggesting hepatic steatosis. The pancreas and the common bile duct are not well visualized. Abdomen/Pelvis CT 10/26/21 17:37 IMPRESSION: 1. Postsurgical changes from a prior gastric bypass with unusual circular disposition of the anastomosis in the stomach and mild prominence of the pancreaticobiliary limb. If clinically indicated, further imaging after administration of oral contrast is recommended to evaluate for complications. 2. Indeterminate mesenteric haziness with a few prominent mesenteric lymph nodes. This is of uncertain significance but could be associated with mesenteric adenitis, panniculitis or gastroenteritis in the appropriate clinical context. 3. Hepatomegaly and hepatic steatosis. 4. Nonspecific hypoattenuation in the upper pole the right kidney. Correlation with an elective nonemergent abdominal MR is recommended. 5. Medullary nephrocalcinosis, possibly sponge kidney, and multiple nonobstructive bilateral renal calculi. 6. Incompletely characterized hypodensity in the cervix. Correlation with a nonemergent pelvic ultrasound is recommended. Abdomen/Pelvis CT 10/26/21 21:02 IMPRESSION: * Gabriel-en-Y gastric bypass. Excluded stomach is free of enteric contrast. There is trace oral contrast within the distal transverse duodenum and what portion of the duodenum which may represent retrograde reflux from the enteroenteric anastomosis. No evidence of anastomotic dehiscence. * Bilateral medullary nephrocalcinosis and punctate nonobstructive calculi as described. No ureteral calculi or hydronephrosis. Diagnostic considerations for medullary calcinosis include hyperparathyroidism, distal renal tubular acidosis and medullary sponge kidney. * Nonspecific hypodensity in the upper pole right kidney favored to relate to a benign cyst cyst (as seen on the ultrasound performed earlier same date), * Perinephric stranding versus artifact bowel the superior pole right kidney. Pyelonephritis could be considered. Please correlate with urinalysis. Assessment and Plan (1) Abdominal pain, RUQ: Status: Acute (2) Pyelonephritis: Status: Acute (3) UTI (urinary tract infection): Status: Acute (4) Acute on chronic anemia: Status: Acute Plan 46-year-old female with past medical history of Gabriel-en-Y gastric bypass surgery, hypothyroidism presents to the hospital with abdominal pain found to have pyelonephritis # pyelonephritis - has UTI, with evidence of pyelonephritis on abdominal pelvic CT - will treat with IV antibiotics - follow cultures # UTI - has frequency, with positive UA -evidence of pyelonephritis -she with IV antibiotics - follow cultures # acute on chronic anemia - microcytic anemia - will obtain ferritin, B12 and folic acid - no evidence of acute bleed at this time # hypothyroidism - continue levothyroxine DVT prophylaxis: Lovenox Quality Stroke Does the patient have a stroke diagnosis?: No VTE Prior VTE?: No VTE Risk Level:: Medical - moderate - high VTE Device Contraindication: Treatment Not Indicated VTE Drug Contraindication: N/A - Med Ordered
[2021-10-27] MEDS: Morphine Sulfate 4 MG/ML CARTRIDGE IVPUSH ×4 (00:33→20:09)
[2021-10-27] MEDS: Enoxaparin Sodium 40 MG/0.4 ML SYRINGE SUBCUT (00:34)
[2021-10-27] MEDS: cefTRIAXone sodium 1 GM in 0.9 % Sodium Chloride 50 ML IV ×2 (00:34→23:00)
[2021-10-27] MEDS: 0.9 % Sodium Chloride 1,000 ML 100 ML IVCONT ×3 (00:35→17:43)
[2021-10-27 06:01] LABS: MANUAL DIFF FLAG NO
[2021-10-27 06:04] LABS: Basophils Percent Auto 0.2 % (0-2); Eosinophils Absolute Auto 0.1 X10*3/uL (0.0-0.4); Eosinophils Percent Auto 2.5 % (0-4); Hematocrit 25.8 % (37.0-47.0); Hemoglobin 7.5 g/dl (12.0-16.0); Imm Gran Abs Auto 0.03 X10*3/uL (0.00-0.03); Imm Gran Pct Auto 0.6 % (0.0-0.4); Lymphocytes Absolute Auto 1.7 X10*3/uL (1.2-4.9); Lymphocytes Percent Auto 33.8 % (20-40); Mean Corpuscular HGB Conc 29.1 g/dl (31.0-35.0); Mean Corpuscular Hemoglobin 20.8 pg (27.0-33.0); Mean Corpuscular Volume 71.5 fL (80.0-98.0); Mean Platelet Volume 10.1 fL (9.4-12.3); Monocytes Absolute Auto 0.7 X10*3/uL (0.1-1.2); Monocytes Percent Auto 13.5 % (2-11); Neutrophils Absolute Auto 2.4 x10*3/uL (2.0-8.3); Neutrophils Percent Auto 49.4 % (45-73); Platelet Count 223 X10*3/uL (160-400); Red Blood Count 3.61 X10*6/uL (4.20-5.50); Red Cell Distribution Width 17.7 % (11.0-16.0); White Blood Count 4.9 X10*3/uL (4.8-10.8)
[2021-10-27 06:11] VITALS: BP 99/53; PULSE 61; RESP 18; TEMP 36.7; O2SAT 98
[2021-10-27 06:23] LABS: Anion Gap 10 (12-20); Blood Urea Nitrogen 13 mg/dL (9-16); Calcium 8.3 mg/dL (8.4-10.2); Carbon Dioxide 24 mmol/L (22-29); Chloride 108 mmol/L (96-108); Creatinine Clr Calc Pharmacy 125.5; Estimated Glomerular Filt Rate > 60; Glucose Random 95 mg/dL (60-115); Potassium 3.9 mmol/L (3.3-5.1); Sodium 138 mmol/L (135-145)
[2021-10-27] MEDS: ondansetron HCL 4 MG/2 ML VIAL IVPUSH ×2 (06:28→15:56)
[2021-10-27 08:12] VITALS: BP 105/68; PULSE 75; RESP 18; TEMP 36.8; O2SAT 95
[2021-10-27 08:22] LABS: Ferritin 10 ng/mL (10-250)
[2021-10-27 08:23] LABS: Iron 23 mcg/dL (30-160); Percent Iron Saturation 7 % (15-50); Total Iron Binding Capacity 313 mcg/dL (228-428); Unsaturated Iron Binding 290 ug/dL
--- NOTE | 2021-10-27 09:24 | PHA.MEDREC ---
MED REC COMPLETE, NO ISSUES Pharmacy Consult ? Medication Reconciliation Pharmacy has completed the medication reconciliation.
[2021-10-27 09:46] VITALS: BP 96/54; PULSE 75; RESP 19; TEMP 36.6; O2SAT 97
--- NOTE | 2021-10-27 11:35 | MHC.CM.PN ---
CM met with Patient at bedside in ED room 7. Patient lives in a house with her and 2 teenage children and she is functionally independent. Home no services is the goal for dc and CM has initiated and will follow for dc planning. Patient has no PCP and no Insurance (a referral has been made to [facility]). Patient received the [employer] Covid vax X1 only.
--- NOTE | 2021-10-27 13:28 | P.PNIM_ITS ---
Subjective Subjective Date of Service: 10/27/21 <PASCUAL Andino - Last Filed: 10/27/21 14:13> 10/27/21 <Stacy Crow MD - Last Filed: 10/27/21 15:59> Interval History: seen and examined this morning follow up for pyelonephritis reporting right flank pain, chills no nausea or vomiting <PASCUAL Andino - Last Filed: 10/27/21 14:13> Review of Systems Review of Systems: Yes all other systems are reviewed and are negative <PASCUAL Andino - Last Filed: 10/27/21 14:13> Constitutional Constitutional: Reports chills and Denies fever(s) <PASCUAL Adnino - Last Filed: 10/27/21 14:13> Cardiovascular Cardiovascular: Denies chest pain, Denies palpitations and Denies dyspnea <PASCUAL Andino - Last Filed: 10/27/21 14:13> Respiratory Respiratory: Denies cough and Denies dyspnea <PASCUAL Andino - Last Filed: 10/27/21 14:13> Genitourinary Genitourinary: Reports abnormal menses (average 10 days heavy bleeding), Reports menorrhagia and Denies dysuria <PASCUAL Andino - Last Filed: 10/27/21 14:13> urinary frequency <PASCUAL Andino - Last Filed: 10/27/21 14:13> Endocrine Endocrine: Denies palpitations <PASCUAL Andino - Last Filed: 10/27/21 14:13> Physical Exam Vital Signs: Vital Signs: Last Vital Signs Temp 98 F 10/27/21 09:46 Pulse 75 10/27/21 09:46 Resp 19 10/27/21 09:46 BP 96/54 L 10/27/21 09:46 Pulse Ox 97 10/27/21 09:46 BMI result Body Mass Index 29.4 <PASCUAL Andino - Last Filed: 10/27/21 14:13> Const: General: cooperative, comfortable, alert and awake <PASCUAL Andino - Last Filed: 10/27/21 14:13> Nutritional Appearance: average body habitus <YuePASCUAL Moore - Last Filed: 10/27/21 14:13> Orientation/consciousness: patient oriented x3 <PASCUAL Andino - Last Filed: 10/27/21 14:13> Eyes: Pupils: Equal, round and reactive pupils present <PASCUAL Andino - Last Filed: 10/27/21 14:13> EOM: EOMs intact bilaterally <PASCUAL Andino - Last Filed: 10/27/21 14:13> Resp: Effort & Inspection: normal respiratory effort and able to speak in complete sentences <PASCUAL Andino - Last Filed: 10/27/21 14:13> Auscultation: clear to auscultation bilaterally <PASCUAL Andino - Last Filed: 10/27/21 14:13> Cardio: Rate: regular rate <PASCUAL Andino - Last Filed: 10/27/21 14:13> Heart sounds: S1 normal heart sound present and S2 normal heart sound present <PASCUAL Andino - Last Filed: 10/27/21 14:13> GI: Inspection: No distended <PASCUAL Andino - Last Filed: 10/27/21 14:13> Palpation (GI): Soft to palpation and nontender <PASCUAL Andino - Last Filed: 10/27/21 14:13> : General: Yes CVA tenderness on the right <PASCUAL Andino - Last Filed: 10/27/21 14:13> Back/Spine/Pelvis: Back: CVA tenderness <PASCUAL Andino - Last Filed: 10/27/21 14:13> Neuro: General: patient oriented x3 <PASCUAL Andino - Last Filed: 10/27/21 14:13> Cranial nerves: Yes Equal, round and reactive pupils present <PASCUAL Andino - Last Filed: 10/27/21 14:13> Extrem: General: Yes no pedal edema <PASCUAL Andino - Last Filed: 10/27/21 14:13> Objective Data Active Medications Acetaminophen (Acetaminophen 325 Mg Tablet) 650 mg PO Q6H PRN PRN Reason: Pain, Mild (Pain Scale 1-3) Docusate Sodium (Docusate Sodium 100 Mg Capsule) 100 mg PO DAILY PRN PRN Reason: Constipation Enoxaparin Sodium (Enoxaparin Sodium 40 Mg/0.4 Ml Syringe) 40 mg SUBCUT Q24H COUNT INCLUDES THE [facility] Last Admin: 10/27/21 00:34 Dose: 40 mg Documented by: MOHINI Ceftriaxone Sodium 1 gm/ (Sodium Chloride) 50 mls @ 100 mls/hr IV Q24H COUNT INCLUDES THE [facility] Last Infusion: 10/27/21 01:05 Dose: 100 mls/hr Documented by: MOHINI Sodium Chloride (Ns) 1,000 mls @ 125 mls/hr IVCONT .Q8H COUNT INCLUDES THE [facility] Last Admin: 10/27/21 07:22 Dose: 100 mls/hr Documented by: YANG Morphine Sulfate (Morphine Sulfate 4 Mg/Ml Cartridge) 4 mg IVPUSH Q4H PRN; Protocol PRN Reason: Pain, Severe (Pain Scale 7-10) Last Admin: 10/27/21 06:27 Dose: 4 mg Documented by: MOHINI Ondansetron HCl (Ondansetron Hcl 4 Mg/2 Ml Vial) 4 mg IVPUSH Q8H PRN PRN Reason: Nausea and Vomiting Last Admin: 10/27/21 06:28 Dose: 4 mg Documented by: MOHINI Pharmacy Consult (Consult Rx Perform Med Rec) 1 each MISCELLANE ONCE PRN PRN Reason: Consult order Sodium Chloride (0.9 % Sodium Chloride Flush 3 Ml Syringe) 3 ml IVFLUSH QSHIFT COUNT INCLUDES THE [facility] Last Admin: 10/27/21 07:14 Dose: Not Given Documented by: YANG Non-Admin Reason: IV Running <PASCUAL Andino - Last Filed: 10/27/21 14:13> Labs CBC & Chem 7: : 10/27/21 05:46 10/27/21 05:46 <PASCUAL Andino - Last Filed: 10/27/21 14:13> Labs: Laboratory Results - last 24 hr 10/26/21 10/26/21 10/26/21 14:27 14:27 15:15 MCV 70.8 L MCH 21.0 L MCHC 29.7 L RDW 17.7 H Plt Count 271 MPV 10.2 Immature Gran % (Auto) 0.8 H Neut % (Auto) 60.5 Lymph % (Auto) 25.5 [place] % (Auto) 12.0 H Eos % (Auto) 0.9 Baso % (Auto) 0.3 Lymph # (Auto) 1.7 [place] # (Auto) 0.8 Eos # (Auto) 0.1 Baso # (Auto) 0.0 Abs Immat Gran (auto) 0.05 H Absolute Neuts (auto) 3.9 Absolute Nucleated RBC 0.000 Nucleated RBC % (auto) 0.0 Anion Gap 10 L Estim Creat Clear Calc 110.2 Estimated GFR > 60 Random Glucose 102 Lactic Acid Calcium 9.6 Magnesium 2.0 Iron TIBC % Saturation Unsat Iron Binding Ferritin Total Bilirubin 0.4 Direct Bilirubin 0.2 AST 16 ALT 25 Alkaline Phosphatase 65 Total Protein 7.2 Albumin 3.9 Lipase 23 Beta HCG, Quant < 2 Urine Color YELLOW Urine Appearance CLOUDY Urine pH 6.5 Ur Specific [place] 1.020 Urine Protein TRACE Urine Glucose (UA) NEG Urine Ketones NEG Urine Blood 3+ H Urine Nitrite POS H Ur Leukocyte Esterase 2+ H Urine RBC 50-75 H Urine WBC 30-49 H Ur Squamous Epith Cells TRACE Urine Bacteria 3+ Urine Test COVID-19 (JADA) COVID-19 Clin Com 10/26/21 10/26/21 10/26/21 15:15 22:34 22:35 MCV MCH MCHC RDW Plt Count MPV Immature Gran % (Auto) Neut % (Auto) Lymph % (Auto) [place] % (Auto) Eos % (Auto) Baso % (Auto) Lymph # (Auto) [place] # (Auto) Eos # (Auto) Baso # (Auto) Abs Immat Gran (auto) Absolute Neuts (auto) Absolute Nucleated RBC Nucleated RBC % (auto) Anion Gap Estim Creat Clear Calc Estimated GFR Random Glucose Lactic Acid 0.8 Calcium Magnesium Iron TIBC % Saturation Unsat Iron Binding Ferritin Total Bilirubin Direct Bilirubin AST ALT Alkaline Phosphatase Total Protein Albumin Lipase Beta HCG, Quant Urine Color Urine Appearance Urine pH Ur Specific [place] Urine Protein Urine Glucose (UA) Urine Ketones Urine Blood Urine Nitrite Ur Leukocyte Esterase Urine RBC Urine WBC Ur Squamous Epith Cells Urine Bacteria Urine Test Cancelled COVID-19 (JADA) Negative COVID-19 Clin Com See Note 10/27/21 10/27/21 05:46 05:46 MCV 71.5 L MCH 20.8 L MCHC 29.1 L RDW 17.7 H Plt Count 223 MPV 10.1 Immature Gran % (Auto) 0.6 H Neut % (Auto) 49.4 Lymph % (Auto) 33.8 [place] % (Auto) 13.5 H Eos % (Auto) 2.5 Baso % (Auto) 0.2 Lymph # (Auto) 1.7 [place] # (Auto) 0.7 Eos # (Auto) 0.1 Baso # (Auto) 0.0 Abs Immat Gran (auto) 0.03 Absolute Neuts (auto) 2.4 Absolute Nucleated RBC 0.000 Nucleated RBC % (auto) 0.0 Anion Gap 10 L Estim Creat Clear Calc 125.5 Estimated GFR > 60 Random Glucose 95 Lactic Acid Calcium 8.3 L D Magnesium Iron 23 L TIBC 313 % Saturation 7 L Unsat Iron Binding 290 Ferritin 10 Total Bilirubin Direct Bilirubin AST ALT Alkaline Phosphatase Total Protein Albumin Lipase Beta HCG, Quant Urine Color Urine Appearance Urine pH Ur Specific [place] Urine Protein Urine Glucose (UA) Urine Ketones Urine Blood Urine Nitrite Ur Leukocyte Esterase Urine RBC Urine WBC Ur Squamous Epith Cells Urine Bacteria Urine Test COVID-19 (JADA) COVID-19 Clin Com <PASCUAL Andino - Last Filed: 10/27/21 14:13> Microbiology Microbiology Results: Microbiology 10/26/21 15:15 Urine Culture - Preliminary Urine clean catch - Urine phillips top Gram negative ramiro <PASCUAL Andino - Last Filed: 10/27/21 14:13> Assessment and Plan (1) Pyelonephritis: Status: Acute <PASCUAL Andino - Last Filed: 10/27/21 14:13> (2) Acute on chronic anemia: Status: Acute <PASCUAL Andino - Last Filed: 10/27/21 14:13> Plan 46-year-old female with past medical history of Gabriel-en-Y gastric bypass elena siobhan, hypothyroidism presents to the hospital with abdominal pain found to have pyelonephritis acute pyelonephritis CT showing nonobstructing kidney stones and perinephric stranding no evidence of sepsis continue IV ceftriaxone follow urine cultures, blood cultures acute on chronic iron deficiency anemia h/o menorrhagia, currently menstruating takes po iron supplementation at baseline follow cbc hypothyroidism - continue levothyroxine DVT prophylaxis: mechanical devices attending: dr. crow patient requires ongoing inpatient hospitalization due to pyelonephritis requiring iv abx/ pain control/ risk of progression to sepsis <PASCUAL Andino - Last Filed: 10/27/21 14:13> Quality Stroke Does the patient have a stroke diagnosis?: No <PASCUAL Andino - Last Filed: 10/27/21 14:13> VTE Prior VTE?: No <PASCUAL Andino - Last Filed: 10/27/21 14:13> VTE Risk Level:: Medical - moderate - high <PASCUAL Andino - Last Filed: 10/27/21 14:13> VTE Device Contraindication: Treatment Not Indicated <PASCUAL Andino - Last Filed: 10/27/21 14:13> VTE Drug Contraindication: N/A - Med Ordered <PASCUAL Andino - Last Filed: 10/27/21 14:13>
--- NOTE | 2021-10-27 15:04 | PC.NURSE ---
report given to juanita vazquez
[2021-10-27] MEDS: Levothyroxine Sodium 175 MCG TABLET PO (15:42)
[2021-10-27 16:00] VITALS: BP 114/67; PULSE 69; RESP 16; TEMP 36.8; O2SAT 99
[2021-10-27 20:00] VITALS: BP 114/71; PULSE 69; RESP 16; TEMP 37; O2SAT 98
[2021-10-27 23:34] VITALS: BP 100/64; PULSE 68; RESP 17; TEMP 36.1; O2SAT 98
[2021-10-28] VITALS (7 sets, daily range): BP systolic 106–113; BP diastolic 57–68; PULSE 63–71; RESP 15–18; TEMP 36.1–36.9; O2SAT 95–98
[2021-10-28] MEDS: 0.9 % Sodium Chloride 1,000 ML 125 ML IVCONT ×3 (01:47→22:15)
[2021-10-28] MEDS: Acetaminophen 325 MG TABLET 650 MG PO ×2 (03:18→17:02)
[2021-10-28 05:42] LABS: Hematocrit 25.7 % (37.0-47.0); Hemoglobin 7.3 g/dl (12.0-16.0); Mean Corpuscular HGB Conc 28.4 g/dl (31.0-35.0); Mean Corpuscular Hemoglobin 20.5 pg (27.0-33.0); Mean Corpuscular Volume 72.2 fL (80.0-98.0); Mean Platelet Volume 10.8 fL (9.4-12.3); Platelet Count 242 X10*3/uL (160-400); Red Blood Count 3.56 X10*6/uL (4.20-5.50); Red Cell Distribution Width 17.8 % (11.0-16.0); White Blood Count 4.5 X10*3/uL (4.8-10.8)
[2021-10-28 06:01] LABS: Anion Gap 8 (12-20); Blood Urea Nitrogen 8 mg/dL (9-16); Calcium 8.4 mg/dL (8.4-10.2); Carbon Dioxide 25 mmol/L (22-29); Chloride 109 mmol/L (96-108); Creatinine Clr Calc Pharmacy 127.7; Estimated Glomerular Filt Rate > 60; Glucose Random 102 mg/dL (60-115); Potassium 4.3 mmol/L (3.3-5.1); Sodium 138 mmol/L (135-145)
[2021-10-28 06:36] LABS: Folate 15.7 ng/mL (> or = 4.0); Vitamin B12 292 pg/mL (200-900)
[2021-10-28] MEDS: Levothyroxine Sodium 175 MCG TABLET PO (08:31)
[2021-10-28] MEDS: Ferrous Sulfate 324 MG TABLET.DR PO ×2 (08:31→17:03)
[2021-10-28] MEDS: Morphine Sulfate 4 MG/ML CARTRIDGE IVPUSH ×2 (08:34→13:38)
--- NOTE | 2021-10-28 12:38 | MHC.CM.PN ---
nurse disease case manager rn note electronic medical record reviewed , case discussed with the hospitlaist , met with purvi she does not work and her works , she confirmed they have no health insurance for he , his and children, referral had been kmade the [facility] financial counselors to see patient while in house for Risk I/O ekligeability application for her and her family discharge plan home with and children , home no services pcp has no pcp no insurance, i gave her a klist of the [place] [employer] sheet [facility] financial counselors i called and left meessage for them to see her today before discharge home, i also gave her the phone number to call for follow up transportation family
--- NOTE | 2021-10-28 13:36 | HO.PM.IMPN ---
Subjective Subjective Date of Service: 10/28/21 Interval History: This history was taken in Vietnamese from the patient. C/o RUQ/R flank pain, unrelieved by PO hydrocodone NO fever Review of Systems Review of Systems: Yes all other systems are reviewed and are negative Physical Exam Vital Signs: Vital Signs: Last Vital Signs Temp 97.7 F 10/28/21 10:39 Pulse 70 10/28/21 10:39 Resp 18 10/28/21 10:39 BP 107/68 10/28/21 10:39 Pulse Ox 97 10/28/21 10:39 BMI result Body Mass Index 29.4 Gen: in no acute distress HEENT: sclera anicteric, moist mucus membranes Neck: supple Lungs: clear to auscultation bilaterally Heart: regular rate and rhythm, no murmurs Abd: soft, non-tender, non-distended : R CVA tenderness Ext: no edema Skin: warm/well-perfused Neuro: alert and oriented x3, no focal findings Psych: appropriate affect Objective Data Active Medications Acetaminophen (Acetaminophen 325 Mg Tablet) 650 mg PO Q6H PRN PRN Reason: Pain, Mild (Pain Scale 1-3) Last Admin: 10/28/21 03:18 Dose: 650 mg Documented by: MASOOD Hydrocodone Bitart/Acetaminophen (Hydrocodone Bit/Acetam 10/325 Tablet) 1 tab PO Q6H PRN PRN Reason: moderate pain Last Admin: 10/28/21 11:42 Dose: 1 tab Documented by: YOVANY Docusate Sodium (Docusate Sodium 100 Mg Capsule) 100 mg PO DAILY PRN PRN Reason: Constipation Ferrous Sulfate (Ferrous Sulfate 324 Mg Tablet.) 324 mg PO BIDWM [facility] Last Admin: 10/28/21 08:31 Dose: 324 mg Documented by: YOVANY Ceftriaxone Sodium 1 gm/ (Sodium Chloride) 50 mls @ 100 mls/hr IV Q24H [facility] Last Infusion: 10/27/21 23:34 Dose: 0 mls/hr Documented by: MASOOD Sodium Chloride (Ns) 1,000 mls @ 125 mls/hr IVCONT .Q8H [facility] Last Admin: 10/28/21 08:35 Dose: 125 mls/hr Documented by: YOVANY Levothyroxine Sodium (Levothyroxine Sodium 175 Mcg Tablet) 175 mcg PO DAILY [facility] Last Admin: 10/28/21 08:31 Dose: 175 mcg Documented by: YOVANY Morphine Sulfate (Morphine Sulfate 4 Mg/Ml Cartridge) 4 mg IVPUSH Q4H PRN; Protocol PRN Reason: Pain, Severe (Pain Scale 7-10) Last Admin: 10/28/21 08:34 Dose: 4 mg Documented by: YOVANY Ondansetron HCl (Ondansetron Hcl 4 Mg/2 Ml Vial) 4 mg IVPUSH Q8H PRN PRN Reason: Nausea and Vomiting Last Admin: 10/27/21 15:56 Dose: 4 mg Documented by: YOVANY Pharmacy Consult (Consult Rx Perform Med Rec) 1 each MISCELLANE ONCE PRN PRN Reason: Consult order Sodium Chloride (0.9 % Sodium Chloride Flush 3 Ml Syringe) 3 ml IVFLUSH QSHIFT [facility] Last Admin: 10/28/21 07:10 Dose: Not Given Documented by: YOVANY Non-Admin Reason: IV Running Labs CBC & Chem 7: 10/28/21 05:24 10/28/21 05:24 Labs: Laboratory Results - last 24 hr 10/27/21 10/28/21 10/28/21 05:46 05:24 05:24 MCV 72.2 L MCH 20.5 L MCHC 28.4 L RDW 17.8 H Plt Count 242 MPV 10.8 Absolute Nucleated RBC 0.000 Nucleated RBC % (auto) 0.0 Anion Gap 8 L Estim Creat Clear Calc 127.7 Estimated GFR > 60 Random Glucose 102 Calcium 8.4 Vitamin B12 292 Folate 15.7 Microbiology Microbiology Results: Microbiology 10/27/21 06:00 Blood Culture - Preliminary Blood - Venous No growth after 24 hours. 10/26/21 15:15 Urine Culture - Final Urine clean catch - Urine phillips top Escherichia coli 10/26/21 22:35 Blood Culture - Preliminary Blood - Venous No growth after 24 hours. Assessment and Plan (1) Pyelonephritis: Status: Acute (2) Acute on chronic anemia: Status: Acute Plan hospital d#3 46yo F with hx Gabriel-en-Y gastric bypass + hypothyroidism admitted for pyelonephritis # pyelonephritis, valladares-sensitive E. coli - ceftriaxone d#3, change to cefuroxime upon discharge home # bilateral medullary nephrocalcinosis - Nephrology consultation # acute/chronic TIGRE reulated to menorrhagia - Fe supplementation, repeat CBC in am and as outpt # hypothyroidism - continue LT4 # VTE ppx - SCDs # dispo - eventual home when pain controlled In my clinical judgment, the patient requires continued hospitalization for the following reasons: severe anemia, requiring IV analgesia for relief of pain Quality Stroke Does the patient have a stroke diagnosis?: No VTE Prior VTE?: No VTE Risk Level:: Medical - moderate - high VTE Device Contraindication: Treatment Not Indicated VTE Drug Contraindication: N/A - Med Ordered
--- NOTE | 2021-10-28 15:42 | PC.NURSE ---
1430 Pt states I feel like my blood pressure is dropping BP checked 113/57 HR 63. Pt laid flat with good effect. Encouraged pt to call for nurse if she feels this way again and not to get OOB on her own.
[2021-10-29] MEDS: Morphine Sulfate 4 MG/ML CARTRIDGE IVPUSH (00:04)
[2021-10-29] MEDS: cefTRIAXone sodium 1 GM in 0.9 % Sodium Chloride 50 ML IV (00:05)
[2021-10-29 03:17] VITALS: BP 97/54; RESP 18; TEMP 36.8; O2SAT 97
[2021-10-29 06:03] LABS: Hematocrit 27.9 % (37.0-47.0); Mean Corpuscular HGB Conc 28.7 g/dl (31.0-35.0); Mean Corpuscular Hemoglobin 20.6 pg (27.0-33.0); Mean Corpuscular Volume 71.9 fL (80.0-98.0); Mean Platelet Volume 10.4 fL (9.4-12.3); Platelet Count 256 X10*3/uL (160-400); Red Blood Count 3.88 X10*6/uL (4.20-5.50); Red Cell Distribution Width 17.8 % (11.0-16.0); White Blood Count 4.8 X10*3/uL (4.8-10.8)
[2021-10-29] MEDS: Ferrous Sulfate 324 MG TABLET.DR PO ×2 (07:57→16:52)
[2021-10-29] MEDS: Levothyroxine Sodium 175 MCG TABLET PO (07:57)
[2021-10-29 08:00] VITALS: BP 101/57; PULSE 69; RESP 18; TEMP 36.5; O2SAT 96
--- NOTE | 2021-10-29 10:24 | MHC.CM.PN ---
NURSE SITE TECHNICIAN NOTE ELECTRONIC MEDICAL RECORD REIVIWED ALONG WITH CASE DISCUSSED WITH STAFF NURSE AND THE HOSPITLAIST , MET WITH PATIENT AND SPOKE WITH HIS BY TELEPHONE SPEAKER , PATIENT to be discharged today to [facility] discharge plan clinicl acceptance to [facility] today (priovate room non covid vacinated) he will be transferred [facility] today n [facility] updated 10/28/21 rapid covid test negative all discharge paperwork sent to them
--- NOTE | 2021-10-29 10:29 | PM.CNNEP ---
History of Present Illness Reason for Consult Consult date: 10/29/21 Reason for consult: Nephrocalcinosis Chief Complaint Chief complaint: Pyelonephritis History of Present Illness Narrative: 46 yr old woman with h/o renal stone s/p Laser in stent in [place] s/p Gastric bypass 14 yrs ago Kideny stones were prior to bypass Comes with right flank pain CT shows medullary sponge kidney Review of Systems Review of Systems Yes all other systems are reviewed and are negative Constitutional: Reports chills and Denies fever(s) Cardiovascular: Denies chest pain, Denies palpitations and Denies dyspnea Respiratory: Denies cough and Denies dyspnea Endocrine: Denies palpitations PMFSH Past Medical History Medical History (Updated 10/30/21 @ 10:01 by Carlos Roca MD) Hypothyroid Medullary sponge kidney Nephrocalcinosis Family History Family History (Updated 10/27/21 @ 07:33 by Yanci Sy MD) Other No family history of coronary artery disease Surgical History Surgical History (Updated 10/27/21 @ 07:33 by Yanci Sy MD) History of Gabriel-en-Y gastric bypass Social History Social History (Updated 10/27/21 @ 07:34 by Yanci Sy MD) Household Members: Spouse Housing: House Do you presently have visiting nurse or other home services: No Alcohol intake: never Patient Tobacco Use Status: Never used Tobacco service: No Current occupational status: unemployed Meds Allergies Allergy/AdvReac Type Severity Reaction Status Date / Time No Known Allergies Allergy Verified 10/26/21 15:54 Active Medications: Current Medications Acetaminophen (Acetaminophen 325 Mg Tablet) 650 mg PO Q6H PRN PRN Reason: Pain, Mild (Pain Scale 1-3) Last Admin: 10/28/21 17:02 Dose: 650 mg Documented by: Hydrocodone Bitart/Acetaminophen (Hydrocodone Bit/Acetam 10/325 Tablet) 1 tab PO Q6H PRN PRN Reason: moderate pain Last Admin: 10/28/21 19:48 Dose: 1 tab Documented by: Docusate Sodium (Docusate Sodium 100 Mg Capsule) 100 mg PO DAILY PRN PRN Reason: Constipation Ferrous Sulfate (Ferrous Sulfate 324 Mg Tablet.) 324 mg PO BIDWM [facility] Last Admin: 10/29/21 07:57 Dose: 324 mg Documented by: Ceftriaxone Sodium 1 gm/ (Sodium Chloride) 50 mls @ 100 mls/hr IV Q24H [facility] Last Infusion: 10/29/21 00:39 Dose: Infused Documented by: Levothyroxine Sodium (Levothyroxine Sodium 175 Mcg Tablet) 175 mcg PO DAILY [facility] Last Admin: 10/29/21 07:57 Dose: 175 mcg Documented by: Morphine Sulfate (Morphine Sulfate 4 Mg/Ml Cartridge) 4 mg IVPUSH Q4H PRN; Protocol PRN Reason: Pain, Severe (Pain Scale 7-10) Last Admin: 10/29/21 00:04 Dose: 4 mg Documented by: Ondansetron HCl (Ondansetron Hcl 4 Mg/2 Ml Vial) 4 mg IVPUSH Q8H PRN PRN Reason: Nausea and Vomiting Last Admin: 10/27/21 15:56 Dose: 4 mg Documented by: Pharmacy Consult (Consult Rx Perform Med Rec) 1 each MISCELLANE ONCE PRN PRN Reason: Consult order Sodium Chloride (0.9 % Sodium Chloride Flush 3 Ml Syringe) 3 ml IVFLUSH QSHIFT [facility] Last Admin: 10/29/21 08:00 Dose: Not Given Documented by: Home Medications Medication Instructions Recorded Confirmed Last Taken Type levothyroxine 175 mcg tablet 175 mcg PO DAILY 10/27/21 10/27/21 Unknown History Physical Exam Vital Signs: Last Vital Signs Temp 97.7 F 10/29/21 08:00 Pulse 69 10/29/21 08:00 Resp 18 10/29/21 08:00 BP 101/57 L 10/29/21 08:00 Pulse Ox 96 10/29/21 08:00 BMI result Body Mass Index 29.4 Const General: cooperative, comfortable, no acute distress, alert and awake Nutritional Appearance: average body habitus Orientation/consciousness: patient oriented x3 Eyes General: appearance normal, both eyes and all related structures Pupils: Equal, round and reactive pupils present EOM: EOMs intact bilaterally Resp Effort & Inspection: normal respiratory effort and able to speak in complete sentences Auscultation: clear to auscultation bilaterally Cardio Rate: regular rate Rhythm: regular rhythm Heart sounds: S1 normal heart sound present and S2 normal heart sound present GI Other: Right upper quadrant abdominal tenderness, no rebound or guarding Inspection: No distended Palpation (GI): Soft to palpation and nontender Auscultation: normal bowel sounds Other: CVA tenderness present on the right General: Yes CVA tenderness on the right Back/Spine/Pelvis Back: CVA tenderness Skin General skin exam: no rashes or lesions noted Neuro General: patient oriented x3 Cranial nerves: Yes Equal, round and reactive pupils present Cognition (Neuro): normal cognition Extrem General: Yes normal to inspection and Yes no pedal edema Results Lab Results Result Diagrams: 10/29/21 05:24 10/28/21 05:24 Lab results: Chemistry 10/26/21 10/27/21 10/28/21 14:27 05:46 05:24 Sodium 138 138 138 Potassium 4.0 3.9 4.3 Carbon Dioxide 24 25 BUN 9 13 8 L Creatinine 0.66 0.58 0.57 Calcium 9.6 8.3 L D 8.4 Hematology 10/26/21 10/27/21 10/28/21 14:27 05:46 05:24 WBC 6.5 4.9 4.5 L Hgb 8.7 L 7.5 L 7.3 L Plt Count 271 223 242 10/29/21 05:24 WBC 4.8 Hgb 8.0 L Plt Count 256 Urinalysis 10/26/21 15:15 Urine Color YELLOW Urine Appearance CLOUDY Urine pH 6.5 Ur Specific [place] 1.020 Urine Protein TRACE Urine Glucose (UA) NEG Urine Ketones NEG Urine Blood 3+ H Urine Nitrite POS H Ur Leukocyte Esterase 2+ H Urine RBC 50-75 H Urine WBC 30-49 H Ur Squamous Epith Cells TRACE Assessment and Plan (1) Pyelonephritis: Status: Acute (2) Acute on chronic anemia: Status: Acute (3) Chronic nephrocalcinosis: Status: Acute Plan 46yo F with hx Gabriel-en-Y gastric bypass + hypothyroidism admitted for pyelonephritis Biilateral medullary nephrocalcinosis s/p Laser and stent 7 yrs ago Suggest 24 hr urine studies for Na/Ca/Phos/Citrate/Oxalate Check serum Ca/Phos/PTH 2gm Na diet Increase PO fluid intake to maintain UO of atleast 2 Lit per 24 hrs Further work up base on above THanks Procedures Date of Service Date of Service: 10/29/21
[2021-10-29 11:05] VITALS: BP 120/71; PULSE 76; RESP 18; TEMP 36.4; O2SAT 99
--- NOTE | 2021-10-29 11:58 | P.PNIM_ITS ---
Subjective Subjective Date of Service: 10/29/21 Interval History: Ongoing R flank pain requiring IV morphine overnight History of laser lithotripsy No fever Review of Systems Review of Systems: Yes all other systems are reviewed and are negative Physical Exam Vital Signs: Vital Signs: Last Vital Signs Temp 97.6 F 10/29/21 11:05 Pulse 76 10/29/21 11:05 Resp 18 10/29/21 11:05 BP 120/71 10/29/21 11:05 Pulse Ox 99 10/29/21 11:05 BMI result Body Mass Index 29.4 Gen: in no acute distress HEENT: sclera anicteric, moist mucus membranes Neck: supple Lungs: clear to auscultation bilaterally Heart: regular rate and rhythm, no murmurs Abd: soft, non-tender, non-distended : R CVA tenderness Ext: no edema Skin: warm/well-perfused Neuro: alert and oriented x3, no focal findings Psych: appropriate affect Objective Data Active Medications Acetaminophen (Acetaminophen 325 Mg Tablet) 650 mg PO Q6H PRN PRN Reason: Pain, Mild (Pain Scale 1-3) Last Admin: 10/28/21 17:02 Dose: 650 mg Documented by: DOROTHY Hydrocodone Bitart/Acetaminophen (Hydrocodone Bit/Acetam 10/325 Tablet) 1 tab PO Q6H PRN PRN Reason: moderate pain Last Admin: 10/29/21 10:49 Dose: 1 tab Documented by: CINDY Docusate Sodium (Docusate Sodium 100 Mg Capsule) 100 mg PO DAILY PRN PRN Reason: Constipation Ferrous Sulfate (Ferrous Sulfate 324 Mg Sharee.) 324 mg PO BIDWM [facility] Last Admin: 10/29/21 07:57 Dose: 324 mg Documented by: CINDY Ceftriaxone Sodium 1 gm/ (Sodium Chloride) 50 mls @ 100 mls/hr IV Q24H [facility] Last Infusion: 10/29/21 00:39 Dose: 0 mls/hr Documented by: KISHORE Levothyroxine Sodium (Levothyroxine Sodium 175 Mcg Tablet) 175 mcg PO DAILY [facility] Last Admin: 10/29/21 07:57 Dose: 175 mcg Documented by: CINDY Morphine Sulfate (Morphine Sulfate 4 Mg/Ml Cartridge) 4 mg IVPUSH Q4H PRN; Prot ocol PRN Reason: Pain, Severe (Pain Scale 7-10) Last Admin: 10/29/21 00:04 Dose: 4 mg Documented by: KISHORE Ondansetron HCl (Ondansetron Hcl 4 Mg/2 Ml Vial) 4 mg IVPUSH Q8H PRN PRN Reason: Nausea and Vomiting Last Admin: 10/27/21 15:56 Dose: 4 mg Documented by: YOVANY Pharmacy Consult (Consult Rx Perform Med Rec) 1 each MISCELLANE ONCE PRN PRN Reason: Consult order Sodium Chloride (0.9 % Sodium Chloride Flush 3 Ml Syringe) 3 ml IVFLUSH QSHIFT [facility] Last Admin: 10/29/21 08:00 Dose: Not Given Documented by: CINDY Non-Admin Reason: IV Running Labs CBC & Chem 7: 10/29/21 05:24 10/28/21 05:24 Labs: Laboratory Results - last 24 hr 10/29/21 05:24 MCV 71.9 L MCH 20.6 L MCHC 28.7 L RDW 17.8 H Plt Count 256 MPV 10.4 Absolute Nucleated RBC 0.000 Nucleated RBC % (auto) 0.0 Microbiology Microbiology Results: Microbiology 10/27/21 06:00 Blood Culture - Preliminary Blood - Venous No growth after 48 hours. 10/26/21 22:35 Blood Culture - Preliminary Blood - Venous No growth after 48 hours. Assessment and Plan (1) Pyelonephritis: Status: Acute (2) Acute on chronic anemia: Status: Acute Plan hospital d#4 46yo F with hx Gabriel-en-Y gastric bypass + hypothyroidism admitted for pyeloneph ritis # pyelonephritis, valladares-sensitive E. coli - ceftriaxone d#10/13, change to cefuroxime upon discharge home - IV morphine for pain control, encourage use of oral pain medications # bilateral medullary nephrocalcinosis/sponge kidney - Nephrology consulted. check Ca/PO4/iPTH, 24hr urine for Ca/PO4/Na/oxalate/citrate. encourage fluid intake. 2000 mg/d Na restriction. outpt Nephrology f/u. # acute/chronic TIGRE related to menorrhagia - Fe supplementation, repeat CBC in 1-2 wk # hypothyroidism - continue LT4 # VTE ppx - SCDs # dispo - eventual home when pain controlled, hopefully tomorrow In my clinical judgment, the patient requires continued hospitalization for the following reasons: IV analgesia for relief of pain Quality Stroke Does the patient have a stroke diagnosis?: No VTE Prior VTE?: No VTE Risk Level:: Medical - moderate - high VTE Device Contraindication: Treatment Not Indicated VTE Drug Contraindication: N/A - Med Ordered
--- NOTE | 2021-10-29 12:21 | MHC.CM.PN ---
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 PATIENT WAS NOT DISCHAGRED HOME PLAnned yesterday renal conuslt called and patient will need to be here one more day per renal for more urine labs, discharge plan home with no services met with her she has a list of the [facility] associates , and contact information on [facility] financial counselors, for [employer] application, for her and her family , also the contact phone number for financial when she gets the hospit[facility][ paperwork for [facility] bill or work out payement arrangements anticipate discharge tomorrow per hosptialsit
[2021-10-29 15:11] VITALS: BP 90/55; PULSE 84; RESP 16; TEMP 37.8; O2SAT 98
[2021-10-29] MEDS: 0.9 % Sodium Chloride Flush 3 ML SYRINGE IVFLUSH (16:46)
[2021-10-29 19:19] VITALS: BP 93/56; PULSE 70; RESP 18; TEMP 36.4; O2SAT 98
[2021-10-29 23:54] VITALS: BP 126/67; PULSE 62; RESP 18; TEMP 36.3; O2SAT 98
[2021-10-30] MEDS: cefTRIAXone sodium 1 GM in 0.9 % Sodium Chloride 50 ML IV (00:15)
[2021-10-30] MEDS: 0.9 % Sodium Chloride Flush 3 ML SYRINGE IVFLUSH ×3 (00:15→15:41)
[2021-10-30 03:50] VITALS: BP 115/56; PULSE 59; RESP 18; TEMP 36.3; O2SAT 96
[2021-10-30 07:55] VITALS: BP 106/61; PULSE 61; RESP 18; TEMP 36.2; O2SAT 96
[2021-10-30] MEDS: Levothyroxine Sodium 175 MCG TABLET PO (08:00)
[2021-10-30] MEDS: Ferrous Sulfate 324 MG TABLET.DR PO ×2 (08:00→18:01)
--- NOTE | 2021-10-30 10:01 | P.DS_ITS ---
DS: Providers Provider Date of Service: 10/30/21 Date of admission: 10/26/21 23:55 Date of discharge: 10/30/21 Primary care physician: None Physician Consults: 10/28/21 13:37 Consult to Nephrology Routine Consulting Provider: [facility] Reason for consultation: Bilateral medullary nephrocalcinosis DS: Diagnosis Discharge Diagnosis (1) Pyelonephritis: Status: Acute (2) Acute on chronic anemia: Status: Acute (3) Nephrocalcinosis: Status: Acute (4) Medullary sponge kidney: Status: Acute DS: Summary Hospital Course Hospital Course: From admission H+P 10/26/21 by hospitalist Yanci Sy: This is a 46-year-old female with past medical history of hypothyroidism and Gabriel-en-Y gastric bypass presents to the hospital with complaints of right upper and lower quadrant abdominal pain.? Patient reports that her symptoms started a bout 4 days ago, 10/10, radiating across the abdomen, with some urinary frequency, no urgency or dysuria.? She has some nausea with no vomiting, patient otherwise denies any diarrhea or constipation, no chest pain, no shortness of breath, no cough, no headache or change in vision, no lower extremity edema.? On arrival to the ED patient hemodynamically stable with no significant abnormal vitals Labs are significant for WBC count of 4.9, hemoglobin of 8.7, hematocrit 29.3, MCV of 70.8, urine positive for nitrites, leukocyte Estrace, WBC Initial Abdominal pelvic CT without contrast? showed postsurgical changes from a prior gastric bypass with unusual circular disposition of the anastomosis in the stomach and mild prominence of the pancreatobiliary limb.? A repeat abdominal CT with contrast was done which showed evidence of pyelonephritis and revealed normal gastric bypass no leakage and no blockage.? Pre also shows medullary sponge kidney. She will be admitted for further management This 46yo F with hx Gabriel-en-Y gastric bypass + hypothyroidism was admitted for pyelonephritis and grew valladares-sensitive E. coli from urine. Not bacteremic. Treated with ceftriaxone, changed to cefuroxime upon discharge home. Imaging suggested bilateral medullary nephrocalcinosis/likely medulaly sponge kidney and Nephrology was consulted. 24-hour urine for Ca/PO4/Na/oxalate/citrate sent and pending, along with iPTH level. Fluid intake and 2000 mg/d Na restriction advised. She will need outpatient primary care and nephrology care. She was started on iron supplementation for acute/chronic TIGRE related to menorrhagia; repeat CBC in 1-2 weeks was ordered. Time Spent with Patient Time attestation: Total time spent providing and/or coordinating discharge services: Discharge coordination time: Greater than 30 minutes Quality: Safe Use of Opioids Does Pt have an Active Cancer Diagnosis on the Problem List?: No Quality: Stroke Does the patient have a stroke diagnosis?: No Physical Exam Vital Signs: Vital Signs: Last Vital Signs Temp 97.1 F 10/30/21 07:55 Pulse 61 10/30/21 07:55 Resp 18 10/30/21 07:55 BP 106/61 10/30/21 07:55 Pulse Ox 96 10/30/21 07:55 BMI result Body Mass Index 29.4 Gen: in no acute distress HEENT: sclera anicteric, moist mucus membranes Neck: supple Lungs: clear to auscultation bilaterally Heart: regular rate and rhythm, no murmurs Abd: soft, non-tender, non-distended : mild R CVA tenderness Ext: no edema Skin: warm/well-perfused Neuro: alert and oriented x3, no focal findings Psych: appropriate affect DS: Data Data Completed and Pending Completed studies during hospitalization [Text1]: Laboratory Results WBC 4.8 X10*3/uL (4.8-10.8) 10/29/21 05:24 RBC 3.88 X10*6/uL (4.20-5.50) L 10/29/21 05:24 Hgb 8.0 g/dl (12.0-16.0) L 10/29/21 05:24 Hct 27.9 % (37.0-47.0) L 10/29/21 05:24 MCV 71.9 fL (80.0-98.0) L 10/29/21 05:24 MCH 20.6 pg (27.0-33.0) L 10/29/21 05:24 MCHC 28.7 g/dl (31.0-35.0) L 10/29/21 05:24 RDW 17.8 % (11.0-16.0) H 10/29/21 05:24 Plt Count 256 X10*3/uL (160-400) 10/29/21 05:24 MPV 10.4 fL (9.4-12.3) 10/29/21 05:24 Immature Gran % (Auto) 0.6 % (0.0-0.4) H 10/27/21 05:46 Neut % (Auto) 49.4 % (45-73) 10/27/21 05:46 Lymph % (Auto) 33.8 % (20-40) 10/27/21 05:46 [place] % (Auto) 13.5 % (2-11) H 10/27/21 05:46 Eos % (Auto) 2.5 % (0-4) 10/27/21 05:46 Baso % (Auto) 0.2 % (0-2) 10/27/21 05:46 Lymph # (Auto) 1.7 X10*3/uL (1.2-4.9) 10/27/21 05:46 [place] # (Auto) 0.7 X10*3/uL (0.1-1.2) 10/27/21 05:46 Eos # (Auto) 0.1 X10*3/uL (0.0-0.4) 10/27/21 05:46 Baso # (Auto) 0.0 X10*3/uL (0.0-0.2) 10/27/21 05:46 Abs Immat Gran (auto) 0.03 X10*3/uL (0.00-0.03) 10/27/21 05:46 Absolute Neuts (auto) 2.4 x10*3/uL (2.0-8.3) 10/27/21 05:46 Absolute Nucleated RBC 0.000 X10*3/uL (0.0-0.012) 10/29/21 05:24 Nucleated RBC % (auto) 0.0 /100WBC (0.0-0.2) 10/29/21 05:24 Sodium 138 mmol/L (135-145) 10/28/21 05:24 Potassium 4.3 mmol/L (3.3-5.1) 10/28/21 05:24 Chloride 109 mmol/L (96-108) H 10/28/21 05:24 Carbon Dioxide 25 mmol/L (22-29) 10/28/21 05:24 Anion Gap 8 (12-20) L 10/28/21 05:24 BUN 8 mg/dL (9-16) L 10/28/21 05:24 Creatinine 0.57 mg/dL (0.5-1.4) 10/28/21 05:24 Estim Creat Clear Calc 127.7 10/28/21 05:24 Estimated GFR > 60 10/28/21 05:24 Random Glucose 102 mg/dL (60-115) 10/28/21 05:24 Lactic Acid 0.8 mmol/L (0.5-2.0) 10/26/21 22:34 Calcium 8.4 mg/dL (8.4-10.2) 10/28/21 05:24 Magnesium 2.0 mg/dL (1.6-2.6) 10/26/21 14:27 Iron 23 mcg/dL (30-160) L 10/27/21 05:46 TIBC 313 mcg/dL (228-428) 10/27/21 05:46 % Saturation 7 % (15-50) L 10/27/21 05:46 Unsat Iron Binding 290 ug/dL 10/27/21 05:46 Ferritin 10 ng/mL (10-250) 10/27/21 05:46 Total Bilirubin 0.4 mg/dL (0.0-1.0) 10/26/21 14:27 Direct Bilirubin 0.2 mg/dL (0.0-0.5) 10/26/21 14:27 AST 16 U/L (5-31) 10/26/21 14:27 ALT 25 U/L (0-31) 10/26/21 14:27 Alkaline Phosphatase 65 U/L (39-117) 10/26/21 14:27 Total Protein 7.2 g/dL (6.5-8.0) 10/26/21 14:27 Albumin 3.9 g/dL (3.5-5.0) 10/26/21 14:27 Lipase 23 U/L (8-78) 10/26/21 14:27 Vitamin B12 292 pg/mL (200-900) 10/27/21 05:46 Folate 15.7 ng/mL (> or = 4.0) 10/27/21 05:46 Beta HCG, Quant < 2 mIU/mL 10/26/21 14:27 Urine Color YELLOW 10/26/21 15:15 Urine Appearance CLOUDY 10/26/21 15:15 Urine pH 6.5 (5.0-8.0) 10/26/21 15:15 Ur Specific [place] 1.020 (1.005-1.025) 10/26/21 15:15 Urine Protein TRACE MG/DL (NEG-TRACE) 10/26/21 15:15 Urine Glucose (UA) NEG MG/DL (NEG) 10/26/21 15:15 Urine Ketones NEG MG/DL (NEG) 10/26/21 15:15 Urine Blood 3+ (NEG) H 10/26/21 15:15 Urine Nitrite POS (NEG) H 10/26/21 15:15 Ur Leukocyte Esterase 2+ (NEG) H 10/26/21 15:15 Urine RBC 50-75 /HPF (0) H 10/26/21 15:15 Urine WBC 30-49 /HPF (0-4) H 10/26/21 15:15 Ur Squamous Epith Cells TRACE /LPF 10/26/21 15:15 Urine Bacteria 3+ /LPF 10/26/21 15:15 Urine Test Cancelled 10/26/21 15:15 COVID-19 (JADA) Negative (Negative) 10/26/21 22:35 COVID-19 Clin Com See Note 10/26/21 22:35 Impressions Abdomen Ultrasound 10/26/21 16:48 IMPRESSION: Limited examination due to patient body habitus and shadowing from overlying bowel gas. Unfortunately, the gallbladder is contracted limiting its assessment. If there is high clinical concerns for acute cholecystitis, correlation with an interval ultrasound or a CT abdomen could be obtained. Increased parenchymal echogenicity of the liver suggesting hepatic steatosis. The pancreas and the common bile duct are not well visualized. Abdomen/Pelvis CT 10/26/21 21:02 IMPRESSION: * Gabriel-en-Y gastric bypass. Excluded stomach is free of enteric contrast. There is trace oral contrast within the distal transverse duodenum and what portion of the duodenum which may represent retrograde reflux from the enteroenteric anastomosis. No evidence of anastomotic dehiscence. * Bilateral medullary nephrocalcinosis and punctate nonobstructive calculi as described. No ureteral calculi or hydronephrosis. Diagnostic considerations for medullary calcinosis include hyperparathyroidism, distal renal tubular acidosis and medullary sponge kidney. * Nonspecific hypodensity in the upper pole right kidney favored to relate to a benign cyst cyst (as seen on the ultrasound performed earlier same date), * Perinephric stranding versus artifact bowel the superior pole right kidney. Pyelonephritis could be considered. Please correlate with urinalysis. Discharge Plan Discharge Patient Disposition: Home, Self-Care Discharge Diagnosis: Pyelonephritis Iron deficiency anemia Nephrocalcinosis/medullary sponge kidney Referrals: [facility] [Provider Group] - 1 Week [facility] - 1 Week Matthias Le MD [Physician] - 2 Weeks [facility] [Primary Care Provider] - 1 Week Discharge Medications: New cefuroxime axetil 500 mg tablet 500 mg PO Q12H Qty: 16 0RF ferrous sulfate 324 mg (65 mg iron) Tablet,Delayed Release (Dr/Ec) 324 mg PO BIDWM Qty: 60 0RF hydrocodone-acetaminophen 5-300 mg tablet 1 tab PO Q6H PRN (Reason: severe pain (scale score 7-10)) Qty: 12 0RF Continued levothyroxine 175 mcg Tablet 175 mcg PO DAILY 0RF Discharge Orders: Discharge Order (Routine); Ordered 10/30/21 Ordered By: Carlos Roca Diet: low salt diet Activity on Discharge: As tolerated Stand Alone Forms: Patient Portal Discharge page Other Ambulatory Orders: Complete Blood Count Auto Diff (Routine) Timeframe: 1 Week Facility: [facility] - Location: Laboratory Ordered By: Carlos Roca Care Plan Goals: recovery from kidney infection resolution of anemia prevention of kidney stones Health Concerns: Pyelonephritis Iron deficiency anemia Nephrocalcinosis/medullary sponge kidney Plan of Treatment: take cefuroxime 500 mg twice daily for 8 days; take acetaminophen for mild- moderate pain and hydrocodne/acetaminophen for severe pain take ferrous sulfate 324 mg twice daily for 1 month; eat iron-rich foods; check CBC with differential at lab in 1-2 weeks establish primary care doctor as soon as possible; try [facility] or [facility] follow up with Nephrology [Dr Le] in 1-2 weeks; drink at least 2 liters of fluid daily Assessment: See Discharge Summary Patient Instructions: Iron Deficiency Anemia (DC), Kidney Infection (DC)
--- NOTE | 2021-10-30 10:17 | MHC.CM.PN ---
PT MEDICALLY CLEARED FOR D/C HOME SELF-CARE W/ FOR TRANSPORT.
[2021-10-30 10:54] VITALS: BP 107/64; PULSE 74; RESP 18; TEMP 36.8; O2SAT 98
--- NOTE | 2021-10-30 14:42 | PC.NURSE ---
Pt 24 hour urine completed brought down to chemistry.
[2021-10-30 16:00] VITALS: BP 126/80; PULSE 66; RESP 17; TEMP 36.4; O2SAT 99
[2021-10-30 16:02] LABS: Creatinine, mg/dL 51.14; Phosphorus mg/dL 39.2 mg/dL
--- NOTE | 2021-10-30 18:05 | PM.PNNEP ---
Subjective Subjective Date of Service: 11/02/21 Interval history: Ongoing R flank pain requiring IV morphine overnight History of laser lithotripsy No fever Physical Exam Vital Signs: Vital Signs: Last Vital Signs Temp 97.5 F 10/30/21 16:00 Pulse 66 10/30/21 16:00 Resp 17 10/30/21 16:00 BP 126/80 10/30/21 16:00 Pulse Ox 99 10/30/21 16:00 BMI result Body Mass Index 29.4 Objective Data Labs CBC & Chem 7: 10/29/21 05:24 10/28/21 05:24 Labs: Laboratory Results - last 24 hr 10/30/21 14:30 Ur Creatinine mg/dL 51.14 Microbiology Microbiology Results: Microbiology 10/27/21 06:00 Blood - Venous Blood Culture - Preliminary No growth after 48 hours. 10/26/21 22:35 Blood - Venous Blood Culture - Preliminary No growth after 48 hours. 10/26/21 15:15 Urine clean catch - Urine phillips top Urine Culture - Final Escherichia coli Procedures Date of Service Date of Service: 10/30/21 Assessment & Plan Assessment and plan (1) Nephrocalcinosis: Status: Acute Plan Needs 24 hr urine studies Can be done as out pt Time Spent With Patient Time: Total time spent is greater than 50% in coordination of care (as documented) at patient's floor/unit and/or counseling patient: Progress Note: Quality Stroke Does the patient have a stroke diagnosis?: No
[2021-10-30 18:27] LABS: Creatinine, 24Hr Urine 1.1 G/Day (1.0-2.0); Phosphorus, 24 Hr Urine 0.9 G/Day (0.4-1.3); Sodium 24 Hr Urine 295.8 mmol/Day (40-220); Total Volume 24 Hour Urine 2175 mL
[2021-11-01 17:12] LABS: Calcium, 24 Hr Urine 220 mg/24 h; Calcium/Creatinine Ratio 191 mg/g creat (30-275); Creatinine 24Hr Urine 1.15 g/24 h (0.50-2.15)
[2021-11-05 09:06] LABS: 24hr Urine Total Volume 2175 mL; Citric Acid, 24hr Urine 650 mg/24 h (100-1300); Citric Acid/Creat Ratio 24U 549 mg/g creat (180-1070); Creatinine, 24U 1.15 g/24 h (0.50-2.15)
[2021-11-06 08:18] LABS: Oxalic Acid 24 Urine 26.1 mg/24 h (3.6-38.0)
== END 2021-10-30 19:32 | disposition home or self-care (01) | DRG 690 ==
LOC: HO.ED 22:06 → HO.EDOVER 10-27 → HO.S3 10-27 13:42
PROVIDERS: Physician Assistant Medical; Admitting Provider Internal Medicine; Emergency Provider Emergency Medicine Emergency Medical Services; Visit Provider Family Medicine
DX: N10 Acute pyelonephritis (principal); Q61.5 Medullary cystic kidney; D50.9 Iron deficiency anemia, unspecified; N92.0 Excessive and frequent menstruation with regular cycle; B96.20 Unspecified Escherichia coli [E. coli] as the cause of diseases classified elsewhere; E03.9 Hypothyroidism, unspecified; Z98.84 Bariatric surgery status; Z87.442 Personal history of urinary calculi; Z20.822 Contact with and (suspected) exposure to COVID-19; Z79.890 Hormone replacement therapy; Z79.899 Other long term (current) drug therapy
CPT/HCPCS: 36415; 74176; 76705; 80048; 80076; 81001; 81025; 82340; 82507; 82607; 82728; 82746; 83540; 83605; 83690; 83735; 83945; 84105; 84300; 84702; 85025; 85027; 87040; 87086; 87088; 87186; 87635; 96365; 96372; 96375; 99285; 99291; J0696; J1650; J1885; J1956; J2270; J2405

== ENCOUNTER 2022-10-23 00:48 | Emergency (ER) | payer SELFPAY ==
--- NOTE | ~2022-10-23 | XR_ITS ---
EXAMINATION: XR CHEST CLINICAL INFORMATION: Shortness of breath, question pneumonitis COMPARISON: None available. TECHNIQUE: 2 views of the chest were obtained. FINDINGS: The lungs are clear with no focal consolidation. No evidence of pneumothorax, pulmonary edema, or pleural effusions. The cardiomediastinal silhouette is unremarkable. No acute osseous findings. XR/XR chest 2V IMPRESSION: No acute cardiopulmonary findings.
[2022-10-23 00:49] VITALS: BP 128/72; PULSE 77; RESP 22; TEMP 36.5; O2SAT 99; BMI 34.8
[2022-10-23] MEDS: Albuterol/Iprat 2.5/0.5MG 3 ML AMPUL.NEB INHALE (01:22)
[2022-10-23 01:24] VITALS: PULSE 77; RESP 20; O2SAT 99
[2022-10-23 01:25] VITALS: PULSE 75; RESP 22; O2SAT 97
--- NOTE | 2022-10-23 01:26 | ED_ITS ---
HPI - SOB/Dyspnea General Chief Complaint: Dyspnea Stated Complaint: Sob, diff breathing Time Seen by Provider: 10/23/22 00:54 Source: patient and family Mode of arrival: ambulatory History of Present Illness HPI Narrative: 47-year-old female with a history of thyroid dysfunction presents after she was cleaning with Lysol/bleach and hot water in a closed space within the bathroom and began developing increasing shortness of breath and headache that prompted her to come into the emergency room and be further evaluated. Related Data Home Medications Medication Instructions Recorded Confirmed levothyroxine 175 mcg tablet 175 mcg PO DAILY 10/27/21 10/27/21 Previous Rx's Medication Instructions Recorded cefuroxime axetil 500 mg tablet 500 mg PO Q12H #16 tabs 10/28/21 ferrous sulfate 324 mg (65 mg 324 mg PO BIDWM #60 tabs 10/28/21 iron) tablet,delayed release hydrocodone 5 mg-acetaminophen 300 1 tab PO Q6H PRN severe pain 10/28/21 mg tablet (scale score 7-10) #12 tabs prednisone 50 mg tablet 50 mg PO DAILY 4 days #4 tabs 10/23/22 Allergies Allergy/AdvReac Type Severity Reaction Status Date / Time No Known Allergies Allergy Verified 10/26/21 15:54 Review of Systems Review of Systems: Pertinent positives and negatives as stated in HPI PMFSH Past Medical History Source: nursing notes reviewed Medical History Hypothyroid Medullary sponge kidney Nephrocalcinosis Surgical History History of Gabriel-en-Y gastric bypass Family History Family History Other No family history of coronary artery disease Social History Social History Household Members: Spouse Housing: House Do you presently have visiting nurse or other home services: No Alcohol intake: never Patient Tobacco Use Status: Never used Tobacco Smoked in Last 30 Days: No Use of substances other than those prescribed or required for medical reasons: No Advance Directives: No Advance Directives Information Provided: Yes Patient : No service: No Current occupational status: unemployed Physical Exam Vital Signs: Vital Signs: Last Vital Signs Temp 97.7 F 10/23/22 00:49 Pulse 75 10/23/22 01:25 Resp 22 H 10/23/22 01:25 BP 128/72 10/23/22 00:49 Pulse Ox 97 10/23/22 01:25 O2 Del Method Room Air 10/23/22 01:25 BMI result Body Mass Index 34.8 VITAL SIGNS: Reviewed. GENERAL: Well developed, well nourished, in no acute distress. HEAD: Normocephalic/atraumatic EYES: PERRLA, EOMI LUNGS: No stridor, good inspiratory effort with mild expiratory wheeze bilaterally, tachypnea+. SpO2<97> CARDIOVASCULAR: Regular rate and rhythm without noted murmurs ABDOMEN: Soft, non-tender, non-distended with bowel sounds. MUSCULOSKELETAL: No tenderness, deformities, or effusions noted on gross inspection. EXTREMITIES: No cyanosis, clubbing or edema. SKIN: Inspection of the skin reveals no rashes NEUROLOGIC: Alert and oriented x 4. Strength and sensation to light touch were grossly intact x 4. Medications Administered Discontinued Medications Generic Name Dose Route Start Last Admin Trade Name Freq PRN Reason Stop Dose Admin Albuterol/Ipratropium 3 ml 10/23/22 01:11 10/23/22 01:22 Albuterol/Iprat 2.5/0.5mg 3 Ml Ampul.Neb INHALE 10/23/22 01:12 3 ml ONCE ONE Administration Methylprednisolone Sodium Succinate 125 mg 10/23/22 01:29 10/23/22 01:38 Methylprednisolone Sod Succ 125 Mg/2 Ml Vial IVPUSH 10/23/22 01:30 125 mg ONCE ONE Administration Medical Decision Making Medical Decision Making MDM Narrative: 47-year-old female with history and clinical presentation consistent with respiratory exposure to noxious material raising concerns for possible pneumonitis. Will provided DuoNeb, obtain two view chest x-ray, and give empiric steroids. Patient remains hemodynamically stable, oxygenating well on room air. Patient will be discharged on 4 more days of prednisone as well as a Ventolin inhaler and cautioned against exposure to any further noxious smells such as cleaning agents, or perfumes. She was also strongly encouraged to follow-up with primary care provider. Differential Diagnosis Please see the discussion above Radiology Impression Radiologist Impression: My interpretation is in agreement with radiology's impression of the imaging studies. Discharge Plan Discharge Clinical Impression: Pneumonitis due to fumes Patient Disposition: Home, Self-Care Instructions: Pneumonitis (ED) Additional Instructions: 1. Ventolin, 2 inhalaciones, cada 6 horas seg?n sea necesario para la dificultad para respirar. 2. Complete el curso de esteroides. 3. Llame a jaramillo proveedor de atenci?n primaria por la ma?oneyda para programar joss bartolome para la reevaluaci?n. Regrese a la ivan de emergencias por cualquier empeoramiento de la dificultad para respirar. 1. Ventolin, 2 puffs, every 6 hours as needed for shortness of breath. 2. Please complete the course of steroids. 3. Call your primary care provider in the morning to set up an appointment for re-evaluation. Return to the ER for any worsening shortness of breath. Prescriptions: New prednisone 50 mg tablet 50 mg PO DAILY 4 Days Qty: 4 0RF No Action levothyroxine 175 mcg Tablet 175 mcg PO DAILY cefuroxime axetil 500 mg tablet 500 mg PO Q12H Qty: 16 0RF ferrous sulfate 324 mg (65 mg iron) Tablet,Delayed Release (Dr/Ec) 324 mg PO BIDWM Qty: 60 0RF hydrocodone-acetaminophen 5-300 mg tablet 1 tab PO Q6H PRN (Reason: severe pain (scale score 7-10)) Qty: 12 0RF Print Language: Greek
[2022-10-23] MEDS: methylPREDNISolone Sod Succ 125 MG/2 ML VIAL IVPUSH (01:38)
--- NOTE | 2022-10-23 01:59 | PC.NURSE ---
Pt ambulated from WR to room. Pt speaking in sentences, reports cleaning with bleach and turning hot water on after and inhaling the fumes. Pt started coughing right after with SOB, states tight feeling to chest with headache followed and one episode of vomiting. Sat o2 97% on RA, RR 22, lung sounds slightly wheezing. IV line placed.
[2022-10-23 02:45] VITALS: BP 106/63; PULSE 76; RESP 16; TEMP 36.7; O2SAT 96
[2022-10-23] MEDS: Albuterol Sulfate 90 MCG 8 GM INHALER 2 PUFF INHALE (03:01)
== END 2022-10-23 03:05 | disposition home or self-care (01) ==
PROVIDERS: Emergency Provider Student in an Organized Health Care Education/Training Program
DX: R06.02 Shortness of breath (principal); T54.91XA Toxic effect of unspecified corrosive substance, accidental (unintentional), initial encounter; J68.0 Bronchitis and pneumonitis due to chemicals, gases, fumes and vapors; Y92.019 Unspecified place in single-family (private) house as the place of occurrence of the external cause
CPT/HCPCS: 71046; 94640; 96374; 99284; 99285; J2930